=== PATIENT | male | born 1955 | race Caucasian/White ===

== ENCOUNTER 2020-07-20 08:00 | Outpatient (RCR) | payer BC, SELFPAY | END 2020-07-20 08:05 | disposition home or self-care (01) | LOC: PT 08:00 | PROVIDERS: Visit Provider Internal Medicine | DX: M25.512 Pain in left shoulder; M25.511 Pain in right shoulder | CPT/HCPCS: 97033; 97110; 97163 ==

== ENCOUNTER 2020-08-22 19:05 | Emergency (ER) | payer BC, SELFPAY ==
[2020-08-22 19:50] VITALS: BP 140/84; PULSE 87; RESP 19; TEMP 36.6; O2SAT 98; BMI 28.1
--- NOTE | 2020-08-22 20:14 | HMH.EDUTC ---
[facility] [place] Clinical Impression: Close exposure to COVID-19 virus Disposition: Home, Self-Care Condition on Discharge: Good Instructions: DI for COVID-19 (Suspected or Confirmed ), COVID-19: Testing and Tracing, Preventing the Spread of Coronavirus Discharge Instructions Additional Instructions: *Monitor Temp, Over the counter Motrin or Tylenol as directed/as needed Tylenol every 4 hours and Motrin every 6 hours (as long as your family doctor has told you that you can take it) for fever or pain. and straight to ER if unable to lower temp less than 101.0 after medication given *Warm salt water gargles may help to soothe the throat *Throat Lozenges *Warm fluids like tea with honey may help to soothe the throat *Sleep elevated *Humidifier/Vaporizer Follow up IMMEDIATELY for new or worsening symptoms or no Noticeable improvement over the next 48-72 hours. 911 for difficulty breathing or swallowing You were tested for today for COVID19 your test result should be back in the next 24-48 hours, you may call to the [facility] to see if your test results are back in the next 48 hours [phone] [facility] hours are 9am-9pm You was given a handout with instructions for Self Quarantine and Self isolation for while you wait on test results and what to do if they are positive If you are positive the Health Dept will be contacting you also Referrals: Melva Marks [Primary Care Provider] - As needed Forms: Work/School Release Time of Disposition: 20:16 Medical Decision Making - Johnnie Inquiry Pt receiving controlled substance: No Johnnie was queried for this patient: No Vital Signs: 08/22/20 19:50 Temperature 97.9 F Temperature Source Oral Pulse Rate [Right Brachial] 87 Respiratory Rate 19 Blood Pressure [Right Arm] 140/84 Blood Pressure Mean [Right Arm] 102 Blood Pressure Source [Right Arm] Automatic Cuff Blood Pressure Position [Right Arm] Sitting 02 Sat by Pulse Oximetry 98 Oxygen Delivery Method Room Air Orders (Tests/Meds): ORDERS Category Date Time Status Covid-19 Nasal PCR ([facility]) Routine Lab 08/22/20 20:00 Ordered [facility] [place] HPI - General Stated complaint: covid test Time Seen by Provider: 08/22/20 20:14 Mode of Arrival: Ambulatory Source of Information: Patient Limitations: No Limitations Description of Symptoms (Recalled from Triage Doc. by RN): COVID TEST D/T EXPOSURE; DENIES SYMPTOMS HEENT Symptoms (Recalled from RN notes): No Resp Symptoms (Recalled from RN notes): No Skin Symptoms (Recalled from RN notes): No MS Symptoms (Recalled from RN notes): No Functional Status (Recalled from RN notes): WNL - History of Present Illness Provider Complaint: Patient state that his recently tested positive for COVID States that he isnt having any symptoms but wanted to get tested due to close exposure - Related Data Allergies Allergy/AdvReac Type Severity Reaction Status Date / Time No Known Allergies Allergy Verified 08/22/20 20:12 - Worker's Comp Is this a Worker's Comp case?: No [facility] History - Hepatitis A Screen Drug use history?: No High risk sexual behaviors?: No History of sexually transmitted infection?: No Currently employed?: No Childcare worker?: No Do you have indoor plumbing?: Yes Do you have electricity?: Yes Attestation statement:: This patient has been screened for Hepatitis A risk factors. I have reviewed the patient's past medical history: Yes - Social History Alcohol Intake: never Occupational Status: other ROS Obtained: Yes All systems reviewed & no additional complaints, Yes Systems reviewed as appropriate & no additional complaints - Constitutional Constitutional: Reports system reviewed and no additional complaints, except as docu, Denies body ache, Denies chills, Denies fever(s), Denies headache(s) - ENT Ears, Nose, Mouth, and Throat: Reports system reviewed and no additional complaints, except as docu - Cardiovascular Cardiovascular: Reports system revie
[2020-08-22 20:33] VITALS: BP 140/84; PULSE 87; RESP 19; TEMP 36.6; O2SAT 98
== END 2020-08-22 20:35 | disposition home or self-care (01) ==
PROVIDERS: Emergency Provider Nurse Practitioner; PCP Internal Medicine
DX: Z20.822 Contact with and (suspected) exposure to COVID-19 (principal)
CPT/HCPCS: 99202; G0463; U0003

== ENCOUNTER 2022-02-15 17:30 | Emergency (ER) | payer BC, SELFPAY ==
[2022-02-15 17:47] VITALS: BP 96/57; PULSE 84; RESP 17; TEMP 36.7; O2SAT 99; BMI 25.9
--- NOTE | 2022-02-15 17:48 | HMH.EDGENADL ---
ED Disposition Condition on Discharge: Fair - Critical Care Critical Care Time: No <Robson Frost - Last Filed: 02/15/22 20:13> <Ham Hsu - Last Filed: 02/15/22 21:46> Clinical Impression: Renal insufficiency Hypotension Qualifiers: Hypotension type: unspecified hypotension type Qualified Code(s): I95.9 - Hypotension, unspecified Community acquired pneumonia Qualifiers: Laterality: unspecified laterality Qualified Code(s): J18.9 - Pneumonia, unspecified organism Altered mental status Qualifiers: Altered mental status type: somnolence Qualified Code(s): R40.0 - Somnolence Disposition: Left Against Medical Advice Instructions: DI for Muscle Weakness Additional Instructions: fluids and call pcp for follow up Prescriptions: levoFLOXacin [Levaquin 500mg tab] 500 mg PO DAILY #7 tab Transmission Status: Pending to [facility] #[id number] Referrals: Melva Marks DO [Primary Care Provider] - Attestation: On 02/15/22, the high probability of a clinically significant, sudden or life threatening deterioration of the following system(s) required my full and direct attention, intervention and personal management. The time I documented below is in addition to time spent performing reported procedures but includes the following listed in this critical care notation. Medical Decision Making - Johnnie Inquiry Pt receiving controlled substance: No - Lab Data Result diagrams: 02/15/22 18:18 02/15/22 18:18 - Radiology Data #1 Image(s): Chest Image Reviewed: Yes I reviewed the patient's radiology image, Yes I have reviewed radiologist's interpretation - CT Data CT Scan: Head Time Received: 18:[address] Reviewed: Yes: I have viewed the radiologist's interpretation <Robson Frost - Last Filed: 02/15/22 20:13> - Lab Data Lab results reviewed: Yes: I reviewed the patient's lab results. Result diagrams: 02/15/22 18:18 02/15/22 18:18 <Ham Hsu - Last Filed: 02/15/22 21:46> Vital Signs: 02/15/22 17:47 02/15/22 18:41 02/15/22 19:41 Temperature 98.1 F Temperature Source Oral Pulse Rate 72 51 L Pulse Rate [Left Radial] 84 Respiratory Rate 17 13 18 Blood Pressure 101/71 L 96/82 L Blood Pressure [Right Arm] 96/57 L Blood Pressure Mean 79 Blood Pressure Mean [Right Arm] 70 02 Sat by Pulse Oximetry 99 95 90 L Oxygen Delivery Method Room Air Room Air Room Air - Lab Data Lab Results 02/15/22 18:18: WBC 13.2 H, RBC 4.25 L, Hgb 13.7 L, Hct 40.4 L, MCV 95.2 H, MCH 32.3 H, MCHC 33.9, RDW 12.9, Plt Count 504 H, MPV 6.7 L, Neut % (Auto) 75.7, Lymph % (Auto) 14.1, [place] % (Auto) 7.4, Eos % (Auto) 2.4, Baso % (Auto) 0.4, Neut # (Auto) 10.0 H, Lymph # (Auto) 1.9, [place] # (Auto) 1.0, Eos # (Auto) 0.3, Baso # (Auto) 0.1 02/15/22 18:18: Sodium 137, Potassium 4.2, Chloride 105, Carbon Dioxide 23, Anion Gap 13.2, BUN 18, Creatinine 1.90 H, Estimated Creat Clear 41, Estimated GFR 36 L, Est GFR ( Amer) 43 L, Glucose 113 H, Calcium 9.0, Total Bilirubin < 0.1 L, AST 22, ALT 21, Alkaline Phosphatase 66, Troponin I < 0.01, Total Protein 7.1, Albumin 4.1, Globulin 3.0, Albumin/Globulin Ratio 1.4, Salicylates < 1.0 L, Acetaminophen < 10 L 02/15/22 18:18: Plasma/Serum Alcohol < 10 02/15/22 18:18: Lactate 1.1 02/15/22 18:18: Monoscreen Negative 02/15/22 18:23: Specimen Source Right radial, O2 % 21, ABG pH 7.32 L, ABG pCO2 35.1, ABG pO2 74.5 L, ABG HCO3 17.6 L, ABG Total CO2 18.7 L, ABG O2 Saturation 94, ABG Base Excess -8.5 L, Ambrosio Test Acceptable 02/15/22 18:40: SARS-CoV-2 (PCR) Not detected, Influenza A Untype (PCR) Not detected, Influenza Type B (PCR) Not detected Orders (Tests/Meds): ED MEDICATIONS Generic Name Dose Route Start Last Admin Trade Name Freq PRN Reason Stop Dose Admin Levofloxacin/Dextrose 750 mg in 150 mls @ 100 mls/hr 02/15/22 20:33 02/15/22 21:23 Levofloxacin 750mg/150ml Premix IV 02/15/22 22:02 100 mls/hr ONCE ONE Administrati
--- NOTE | 2022-02-15 17:50 | PC.NURSE ---
JENNY GONSALEZ at
--- NOTE | 2022-02-15 18:01 | XR_ITS ---
PROCEDURE INFORMATION: Exam: XR Chest Exam date and time: 02/15/2022 6:05 PM Age: 66 years old Clinical indication: Cough and shortness of breath; Patient HX: HX covid one week ago TECHNIQUE: Imaging protocol: Radiologic exam of the chest. Views: 1 view. COMPARISON: No relevant prior studies available. FINDINGS: Lungs: Emphysema. Left lung peripheral opacities could correlate with atypical pneumonia in the appropriate clinical setting. Pleural spaces: Unremarkable. No pleural effusion. No pneumothorax. Heart/Mediastinum: Cardiomegaly. Vasculature: Vascular calcifications. Bones/joints: Unremarkable. IMPRESSION: Left lung peripheral opacities could correlate with atypical pneumonia in the appropriate clinical setting.
--- NOTE | 2022-02-15 18:09 | PC.NURSE ---
respiratory at BS
--- NOTE | 2022-02-15 18:12 | CT_ITS ---
PROCEDURE INFORMATION: Exam: CT Head Without Contrast Exam date and time: 02/15/2022 6:22 PM Age: 66 years old Clinical indication: Altered mental status/memory loss; Additional info: AMS TECHNIQUE: Imaging protocol: Computed tomography of the head without contrast. Radiation optimization: All CT scans at this facility use at least one of these dose optimization techniques: automated exposure control; mA and/or kV adjustment per patient size (includes targeted exams where dose is matched to clinical indication); or iterative reconstruction. COMPARISON: No relevant prior studies available. FINDINGS: Brain: Moderate chronic brain volume loss and chronic small vessel ischemic changes. Cerebral ventricles: The size of the lateral ventricles is somewhat disproportionate to the amount of chronic brain volume loss. Paranasal sinuses: Right maxillary sinus retention cyst. Mastoid air cells: Visualized mastoid air cells are well aerated. Orbital cavities: Status post left cataract surgery. Bones/joints: Unremarkable. No acute fracture. Soft tissues: Unremarkable. IMPRESSION: The size of the lateral ventricles is somewhat disproportionate to the amount of chronic brain volume loss. Please correlate clinically for evidence of normal pressure hydrocephalus/communicating hydrocephalus. Otherwise, no acute findings.
--- NOTE | 2022-02-15 18:20 | ECG_ITS ---
APPROVED REPORT Exam: Resting ECG HR:78 bpm ECG Measurements Heart Rate 78 AXES ND 186 P 27 QRSd 80 QRS 39 QT 388 T 29 QTc 422 Conclusion SINUS RHYTHM WITH OCCASIONAL SUPRAVENTRICULAR PREMATURE COMPLEXES BORDERLINE ECG UNCONFIRMED REPORT Electronically signed by : Adam Sánchez MD 02/16/2022 17:01:18
[2022-02-15 18:23] LABS: ABG Base Excess -8.5 mmol/L (-2.4-2.3); ABG HCO3 17.6 mmhg (22.0-26.0); ABG Oxygen Saturation 94 % (90-100); ABG PCO2 35.1 mmhg (35.0-45.0); ABG PH 7.32 mmol/L (7.35-7.45); ABG PO2 74.5 mmhg (80-100); ABG TCO2 18.7 mmhg (23-27)
--- NOTE | 2022-02-15 18:23 | PC.NURSE ---
IV established and blood sent to the lab.
[2022-02-15 18:24] LABS: Allen's Test Acceptable; Oxygen 21 %; Source Right Radial
--- NOTE | 2022-02-15 18:24 | PC.NURSE ---
pt provided with urinal for sample
--- NOTE | 2022-02-15 18:27 | PC.NURSE ---
pt to CT with locate technician by rosalba
[2022-02-15 18:31] LABS: Basophils # 0.1 K/mm3 (0-0.2); Basophils % 0.4 % (0.1-2.0); Eosinophils # 0.3 K/mm3 (0.0-0.4); Eosinophils % 2.4 % (0.1-12.0); Hematocrit 40.4 % (42.0-52.0); Hemoglobin 13.7 g/dL (14.1-18.0); Lymphocytes # 1.9 K/mm3 (0.7-4.5); Lymphocytes % 14.1 % (10-50); Mean Corpuscular HGB Conc 33.9 g/dL (31.8-35.4); Mean Corpuscular Hemoglobin 32.3 pg (27.0-31.2); Mean Corpuscular Volume 95.2 fl (80-94); Mean Platelet Volume 6.7 fl (7.4-10.4); Monocytes % 7.4 % (1.7-9.3); Neutrophils % 75.7 % (37.0-80.0); Platelet Count 504 K/mm3 (142-424); Red Blood Count 4.25 M/mm3 (4.60-6.20); Red Cell Distribution Width 12.9 % (11.5-17.5); White Blood Count 13.2 K/mm3 (4.8-10.8)
--- NOTE | 2022-02-15 18:34 | PC.NURSE ---
pt returned from CT with restoration technician by stretcher; no complications
[2022-02-15 18:41] VITALS: BP 101/71; PULSE 72; RESP 13; O2SAT 95
[2022-02-15 18:42] LABS: Alanine Aminotransferase 21 U/L (12-78); Albumin Level 4.1 g/dl (3.5-5.0); Albumin/Globulin Ratio 1.4 (1.1-1.8); Alkaline Phosphatase 66 U/L (38-126); Anion Gap 13.2 mEq/L (5-15); Aspartate Amino Transferase 22 U/L (17-59); Blood Urea Nitrogen 18 mg/dl (9-20); Carbon Dioxide 23 mmol/L (22.0-30.0); Chloride 105 mmol/L (98-107); Creatinine Clearance Estimated 41 mL/min (50-200); Estimated Glomerular Filt Rate 36 ml/min (>60); GFR (African American) 43 ML/MIN (>60); Glucose 113 mg/dl (74-100); Potassium 4.2 mmoL/L (3.5-5.1); Sodium 137 mmol/L (136-145); Total Protein,Serum 7.1 g/dl (6.3-8.2)
[2022-02-15 18:43] LABS: Acetaminophen < 10 ug/ml (10-30); Bilirubin,Total < 0.1 mg/dl (0.2-1.3); Ethyl Alcohol < 10 mg/dl (0-10); Lactic Acid 1.1 mmol/L (0.7-2.1); Salicylate < 1.0 mg/dL (2.0-20.0)
[2022-02-15 18:49] LABS: Coronavirus 19, PCR Not Detected (NotDetected); Influenza A, PCR Not Detected (NotDetected); Influenza B, PCR Not Detected (NotDetected)
[2022-02-15 19:00] LABS: Troponin I < 0.01 ng/ml (0.00-0.034)
--- NOTE | 2022-02-15 19:01 | PC.NURSE ---
pt ambulatory to restroom with assistance from spouse and FLORIAN Malave. No complications.
[2022-02-15 19:05] LABS: Monoscreen (Rapid) Negative (Negative)
--- NOTE | 2022-02-15 19:36 | PC.NURSE ---
Pt demanding water to drink. MD agreed. Pt given ice water and started 2nd L of IVF. Pt still unable to provide urine sample.
[2022-02-15 19:41] VITALS: BP 96/82; PULSE 51; RESP 18; O2SAT 90
--- NOTE | 2022-02-15 20:12 | PC.NURSE ---
Pt attempting to provide urine sample again
--- NOTE | 2022-02-15 20:55 | PC.NURSE ---
Pt still unable to provide urine sample. Requested cath to ensure he is not in urine retention. Pt refused at this time. He is continuing to drink PO fluids and is on 3 cup of water. aware.
[2022-02-15 22:23] VITALS: BP 105/62; PULSE 79; RESP 20; TEMP 36.7; O2SAT 98
== END 2022-02-15 22:30 | disposition left against medical advice (07) ==
PROVIDERS: Emergency Provider Emergency Medicine; PCP Internal Medicine
DX: I95.9 Hypotension, unspecified (principal); J18.9 Pneumonia, unspecified organism; R40.0 Somnolence; Z53.29 Procedure and treatment not carried out because of patient's decision for other reasons; Z20.822 Contact with and (suspected) exposure to COVID-19; Z79.899 Other long term (current) drug therapy
CPT/HCPCS: 70450; 71045; 80053; 80329; 82803; 83605; 84484; 85025; 86318; 87040; 93005; 96365; 96375; 99284; C9803; J1956; U0003; U0005

== ENCOUNTER 2023-08-19 01:37 | Inpatient (IN) | payer BC, MEDICARE, SELFPAY ==
[2023-08-19] VITALS (36 sets, daily range): BP systolic 94–169; BP diastolic 46–95; PULSE 55–127; RESP 18–30; TEMP 36.6–37; O2SAT 57–98; BMI 30.4; BMI 29.7
--- NOTE | 2023-08-19 01:43 | PC.NURSE ---
At [address] Leung of spo2 saturation noted during triage. Patient placed on nasal cannula and spo2 increased to 77%. Dr Leung responded to bedside. Respiratory notified. Patient placed on NRB at this time. Oxygen saturation improved to 97% while on NRB.
--- NOTE | 2023-08-19 01:50 | XR_ITS ---
PROCEDURE INFORMATION: Exam: XR Chest Exam date and time: 08/19/2023 1:51 AM Age: 68 years old Clinical indication: Shortness of breath; Additional info: SOA TECHNIQUE: Imaging protocol: Radiologic exam of the chest. Views: 1 view. COMPARISON: CR XR CHEST PORTABLE 02/15/2022 6:05 PM FINDINGS: Lungs: Multifocal parenchymal consolidations concerning for pneumonia and/or edema. Pleural spaces: Small bilateral pleural effusions are suspected. Heart/Mediastinum: No evidence of mediastinal widening or cardiac silhouette enlargement; the mediastinum and heart appear within normal limits for contour and size. Stable cardiac and mediastinal contours. Bones/joints: No evidence of acute osseous abnormalities within the visualized portions of the thoracic spine and ribs. Osseous structures appear appropriate for patient age. IMPRESSION: 1. Multifocal parenchymal consolidations concerning for pneumonia and/or edema. 2. Small bilateral pleural effusions are suspected.
--- NOTE | 2023-08-19 01:53 | HMH.EDCP ---
Discharge Plan Disposition Patient Disposition: Admitted Condition: Fair Clinical Impressions Clinical Impression: Acute hypoxemic respiratory failure Pulmonary edema Qualifiers: Chronicity: acute Qualified Code(s): J81.0 - Acute pulmonary edema Sepsis Qualifiers: Sepsis type: sepsis due to unspecified organism Sepsis acute organ dysfunction status: with acute organ dysfunction Severe sepsis acute organ dysfunction type: acute respiratory failure Acute respiratory failure type: with hypoxia Severe sepsis shock status: without septic shock Qualified Code(s): A41.9 - Sepsis, unspecified organism Discharge ED Provider: Addison Leung General Chief Complaint: Upper Respiratory Infection Stated Complaint: SOA,chest congestion Time Seen by Provider: 08/19/23 01:39 History of Present Illness HPI narrative: This 68-year-old male presents to the ER with concerns of shortness of breath. Over the last week patient has been under the weather with mild respiratory illness. In the last 24 hours he has had acute worsening of shortness of breath. Over the last few days he had mild increase in peripheral swelling, patient does not take a diuretic. 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 He also has COPD but does not take any inhalers. Patient became acutely short of breath tonight and presented to the ER. He has significantly increased work of breathing. Patient states he does not have any chest pain, abdominal pain, no fevers or chills. He states my woke me up and then sh hit the fan with his breathing. states because he was having increased work of breathing earlier today she gave him 500 mg of azithromycin that she had at home. Related Data Home Medications Medication Instructions Recorded Confirmed alprazolam 0.5 mg tablet,extended 0.5 mg PO DAILY Anxiety 02/15/22 02/15/22 release 24 hr amlodipine 10 mg tablet 10 mg PO DAILY htn 02/15/22 02/15/22 carvedilol 25 mg tablet 50 mg PO BID htn 02/15/22 02/15/22 clopidogrel 75 mg tablet 75 mg PO DAILY antiplatelet 02/15/22 02/15/22 finasteride 5 mg tablet 5 mg PO DAILY bph 02/15/22 02/15/22 hydralazine 50 mg tablet 50 mg PO DAILY High blood pressure 02/15/22 02/15/22 lisinopril 40 mg tablet 40 mg PO DAILY High blood pressure 02/15/22 02/15/22 omeprazole 20 mg capsule,delayed 20 mg PO DAILY GERD 02/15/22 02/15/22 release rosuvastatin 20 mg tablet 20 mg PO DAILY hld 02/15/22 02/15/22 Previous Rx's Medication Instructions Recorded levofloxacin 500 mg tablet 500 mg PO DAILY #7 tabs 02/15/22 Allergies Allergy/AdvReac Type Severity Reaction Status Date / Time No Known Allergies Allergy Verified 08/22/20 20:12 [facility] Disclaimer: The information contained in this section may have been updated after the patient was seen, as this information can be updated by other users. Social History Smoking Status: Unknown if ever smoked alcohol intake: never current occupational status: other Travel in the last 8 weeks: None ROS Obtained: Yes All systems reviewed & no additional complaints except as documented Constitutional Constitutional: Denies chills, Denies fever(s), Denies headache(s) and Denies weakness Eyes Eyes: Denies change in vision ENT Ears, Nose, Mouth, and Throat: Denies dizziness, Denies headache(s), Denies nasal congestion and Denies sore throat Cardiovascular Cardiovascular: Denies chest pain, Reports dyspnea and Reports leg edema Respiratory Respiratory: Reports change in phlegm color (Slightly productive cough with yellow phlegm), Reports cough and Reports dyspnea Gastrointestinal Gastrointestingal: Denies constipation, diarrhea, nausea or vomiting Genitourinary Male Genitourinary: Denies difficulty urinating Musculoskeletal Musculoskeletal: Denies arthralgias, Denies myalgias, Denies numbness and Denies tingling Integumentary/Breasts Skin/Breast: Denies change in pigmentation Neurologic Neurologic: Denies dizziness, Denies headache(s), Denies numbness, Denies tingling and Denies weakness Physical Exam General General appearance: alert and in no apparent distress Head Head exam: atraumatic and normocephalic Eye Eye exam: Present PERRL and EOMI ENT ENT exam: Present mucous membranes moist Neck Neck exam: Present normal inspection and full ROM Chest Chest inspection: Present symmetric chest wall rise Respiratory Respiratory exam: Present respiratory distress, wheezes, accessory muscle use and prolonged expiratory phase; Absent stridor Cardiovascular Cardiovascular exam: Present normal rhythm and tachycardia (Rate 106 on arrival) Abdominal Exam Abdominal exam: Present soft; Absent distention or tenderness Extremities Exam Extremities exam: Present full ROM and edema (+1 bilateral lower extremity pitting edema) Neurological Exam Neurological exam: Present alert and oriented X3; Absent motor sensory deficit Psychiatric Psychiatric exam: Present normal affect and normal mood Skin Skin exam: Present warm and dry HEART Score HEART Score HEART Score assessment performed?: Yes History (anamnesis): Moderately suspicious ECG: Non-specific disturbance Age: >65 years Risk factors: 1-2 risk factors Troponin: </= normal limit HEART Score: 5 Procedures Limited Ultrasound Interpretation:: Limited cardiac ultrasound Indication: Shortness of breath, leg swelling Identified cardiac views: Cardiac parasternal long axis, apical four-chamber Findings: Cardiac activity present, no gross wall motion abnormality, no pericardial effusion, no obvious right heart strain Impression: -Cardiac activity present, no gross wall motion abnormality, no pericardial effusion, no tamponade, no obvious right heart strain Images were saved to permanent archive The study was technically adequate CPT: 74918 This study was performed by nv, and I personally interpreted all images/videos. Based on my clinical judgement, these images were adequate and did not necessitate further imaging. Miscellaneous Procedure Procedure Performed: Limited lung ultrasound A focused ultrasound exam of the pleural spaces was performed to evaluate for pneumothorax, pulmonary edema, pleural effusion and/or consolidation. The ultrasound was performed with the following indications, as noted in the H&P: Dyspnea Identified structures: Bilateral thoracic cavities were examined. Findings: Lung sliding: -Present bilaterally B-lines: Present in bilateral anterior and lateral lung kapoor Pleural effusion: -Absent bilaterally Consolidation: No obvious consolidation appreciated bilaterally Impression: - Pneumothorax absent - Pleural effusion absent - B-lines present throughout bilaterally - Consolidation absent Images saved to permanent archive The study was technically adequate CPT 19101-50 This study was performed by nv, and I personally interpreted all images/videos. Based on my clinical judgement, these images were adequate and did not necessitate further imaging. Critical Care Critical Care Time Critical Care Time: Yes Attestation: On 08/19/23, the high probability of a clinically significant, sudden or life threatening deterioration of the following system(s) (pulmonary, cardiac) required my full and direct attention, intervention and personal management. The time I documented below is in addition to time spent performing reported procedures but includes the following listed in this critical care notation. Total Time Total Critical Care Time: 35 Medical Decision Making Medical Records Medical records reviewed: Yes I reviewed the patient's medical records. MR Comment: Most recent ER note from January 2022 demonstrates patient presented with altered mental status and ended up leaving AGAINST MEDICAL ADVICE. Johnnie Inquiry Pt receiving controlled substance: No Vital Signs Vital Signs: 08/19/23 01:38 08/19/23 01:50 08/19/23 02:00 Temperature 97.8 F Temperature Source Oral Pulse Rate 105 H 100 H Pulse Rate [Left Radial] 127 H Respiratory Rate 30 H Blood Pressure 151/95 H 131/87 Blood Pressure [Right Arm] 151/95 H Blood Pressure Mean 123 101 Blood Pressure Mean [Right Arm] 113 Blood Pressure Source [Right Arm] Automatic Cuff Blood Pressure Position [Right Arm] Sitting 02 Sat by Pulse Oximetry 57 L 98 95 Oxygen Delivery Method Room Air Non-Rebreather BiPAP 08/19/23 02:04 08/19/23 02:00 08/19/23 02:30 Temperature Temperature Source Pulse Rate 100 H 90 101 H Pulse Rate [Left Radial] Respiratory Rate Blood Pressure 116/80 Blood Pressure [Right Arm] Blood Pressure Mean 97 Blood Pressure Mean [Right Arm] Blood Pressure Source [Right Arm] Blood Pressure Position [Right Arm] 02 Sat by Pulse Oximetry 95 Oxygen Delivery Method BiPAP 08/19/23 02:31 08/19/23 03:00 08/19/23 03:05 Temperature Temperature Source Pulse Rate 95 H 78 78 Pulse Rate [Left Radial] Respiratory Rate Blood Pressure 120/76 94/65 L 98/68 L Blood Pressure [Right Arm] Blood Pressure Mean 76 Blood Pressure Mean [Right Arm] Blood Pressure Source [Right Arm] Blood Pressure Position [Right Arm] 02 Sat by Pulse Oximetry 94 L 89 L 91 L Oxygen Delivery Method BiPAP Lab Data Labs: Lab Results 08/19/23 01:50: WBC 14.5 H, RBC 5.00, Hgb 15.5, Hct 47.8, MCV 95.5 H, MCH 31.1, MCHC 32.5, RDW 14.2, Plt Count 303, MPV 7.8, Neut % (Auto) 84.6 H, Lymph % (Auto) 7.6 L, [place] % (Auto) 5.0, Eos % (Auto) 2.6, Baso % (Auto) 0.3, Neut # (Auto) 12.3 H, Lymph # (Auto) 1.1, [place] # (Auto) 0.7, Eos # (Auto) 0.4, Baso # (Auto) 0.0, Sodium 137, Potassium 4.3, Chloride 106, Carbon Dioxide 19 L, Anion Gap 16.3 H, BUN 20, Creatinine 1.10, Estimated Creat Clear 81, Estimated GFR 66, Est GFR ( Amer) 80, Glucose 168 H, Calcium 8.6, Total Bilirubin 0.7, AST 26, ALT 19, Alkaline Phosphatase 89, Troponin I < 0.01, NT-Pro-B Natriuret Pep 3110 H, Total Protein 7.8, Albumin 4.2, Globulin 3.6 H, Albumin/Globulin Ratio 1.2 08/19/23 01:54: SARS-CoV-2 (PCR) Not detected, Influenza A Untype (PCR) Not detected, Influenza Type B (PCR) Not detected 08/19/23 01:56: VBG pH 7.33, VBG pCO2 33.7 L, VBG pO2 43.7 H, VBG HCO3 17.4 L, VBG Total CO2 18.5 L, VBG O2 Saturation 73.7 H, VBG Base Excess -8.5 L 08/19/23 01:50 08/19/23 01:50 Response Orders (Tests/Meds): ED MEDICATIONS Generic Name Dose Route Start Last Admin Trade Name Freq PRN Reason Stop Dose Admin Acetaminophen 650 mg 08/19/23 02:54 Acetaminophen 325mg Tab PO 09/18/23 02:53 Q4HP PRN Fever or Mild Pain (1-3) Vancomycin/PEG/NA[place]/Lysine/Water 1.75 gm in 350 mls @ 175 mls/hr 08/19/23 02:30 08/19/23 03:02 Vancomycin 1.75gm/350ml (Peg) Premix IV 08/19/23 04:29 175 mls/hr ONCE ONE Administration Sodium Chloride 1,000 mls @ 50 mls/hr 08/19/23 03:00 Sod Chlor 0.9% 1000ml Bag IV 09/18/23 02:59 .Q20H BR[facility]LEY Miscellaneous 1 each 08/19/23 02:15 08/19/23 02:29 Vancomycin Consult Request NOTAPPLIC 09/18/23 02:14 1 each CONSULT PHARMACY BR[facility] Administration Morphine Sulfate 2 mg 08/19/23 02:54 Morphine 2mg/Ml Syringe IV 09/18/23 02:53 Q2HP PRN Severe Pain (7-10) Nitroglycerin 0.4 mg 08/19/23 02:01 Nitroglycerin 0.4mg Sl Tablet SL 09/18/23 02:00 ONCE PRN Blood Pressure - High Ondansetron HCl 4 mg 08/19/23 02:54 Ondansetron 4mg/2ml Vial IV 09/18/23 02:53 Q8HP PRN Nausea Pantoprazole Sodium 40 mg 08/19/23 09:00 Pantoprazole 40mg Tablet PO 09/18/23 08:59 DAILY BRADLEY Discontinued Medications Generic Name Dose Route Start Last Admin Trade Name Freq PRN Reason Stop Dose Admin Albuterol/Ipratropium 9 ml 08/19/23 01:50 08/19/23 02:00 Ipratropium/Albuterol 3 Ml Neb IH 08/19/23 01:51 9 ml ONCE ONE Administration Furosemide 40 mg 08/19/23 02:01 08/19/23 02:16 Furosemide 40mg/4ml Vial IV 08/19/23 02:02 40 mg ONCE ONE Administration Doxycycline Hyclate 100 mg/ 250 mls @ 166.667 mls/hr 08/19/23 01:50 08/19/23 02:20 Sodium Chloride IV 08/19/23 01:51 Not Given ONCE ONE Piperacillin Sod/Tazobactam 100 mls @ 200 mls/hr 08/19/23 02:14 08/19/23 02:20 Sod 4.5 gm/ Sodium Chloride IV 08/19/23 02:43 Not Given ONCE ONE Piperacillin Sod/Tazobactam 100 mls @ 200 mls/hr 08/19/23 02:19 08/19/23 02:25 Sod 4.5 gm/ Sodium Chloride IV 08/19/23 02:48 200 mls/hr ONCE ONE Administration Methylprednisolone Sodium Succinate 125 mg 08/19/23 01:50 08/19/23 02:05 Methylprednisolone Sod Succ 125mg Vial IV 08/19/23 01:51 125 mg ONCE ONE Administration ORDERS Category Date Time Status CXR --portable [XR chest portable] Stat Exams 08/19/23 01:50 Completed POCUS Point of Care (ER Only) Stat Exams 08/19/23 02:01 Ordered BNP [Brain Natriuretic Peptide] Stat Lab 08/19/23 01:50 Completed CBC w/Auto Diff [Complete Blood Count Auto Diff] Stat Lab 08/19/23 01:50 Completed CMP [Comprehensive Metabolic Panel] Stat Lab 08/19/23 01:50 Completed Complete Blood Count Auto Diff AMLAB Lab 08/19/23 06:00 Ordered Comprehensive Metabolic Panel AMLAB Lab 08/19/23 06:00 Ordered Rapid PCR Covid and Flu A/B Stat Lab 08/19/23 01:54 Completed Trop I [Troponin I] Stat Lab 08/19/23 01:50 Completed Troponin I Q3H Lab 08/19/23 05:00 Ordered Troponin I Q3H Lab 08/19/23 08:00 Ordered Urinalysis and Microscopic Stat Lab 08/19/23 02:13 Ordered VBG [Venous Blood Gas] Stat RT 08/19/23 01:56 Completed ECG initial [place] Routine Y 08/19/23 02:00 Completed MDM Narrative Medical Decision Narrative: In summary, this 68year old male presents to the emergency department today with significantly worsening shortness of breath over the last 24 hours. On initial evaluation patient is in respiratory distress with tachypnea, significant accessory muscle use, wheezing throughout, no rhonchi or rales, +1 peripheral edema in the bilateral lower extremities, patient is young in appearance on arrival saturating 56% on room air. He improved to 72% on 6 L nasal cannula and nonrebreather he improved to 90%. We called for respiratory to start the patient on NIPPV and begin DuoNebs. Differential diagnosis includes but is not limited to COPD exacerbation, pneumonia, SCAPE, heart failure, hypercarbia, viral syndrome, ACS, patient also met sepsis criteria with tachycardia, tachypnea, and source of infection being the lungs. Based on these concerns, I ordered acute respiratory treatment with BiPAP, DuoNebs, Solu-Medrol given patient's history of underlying COPD, also ordered cardiac workup, BNP. ECG personally interpreted demonstrates sinus tachycardia, rate 106, borderline right axis deviation, normal intervals, no STEMI, occasional PVCs. Patient received DuoNebs, Solu-Medrol, broad-spectrum antibiotics for initial treatment. I am not administering IV fluids due to concern for fluid overload and patient not being hypotensive. I performed bedside ultrasound which demonstrated B-lines in all lung kapoor, see procedure note for details. Cardiac function was not significantly depressed on gross assessment of ultrasound. Given the B-lines in all lung kapoor I am concerned for sudden pulmonary edema and I considered nitroglycerin however patient's blood pressure is now systolics in the 110s so he is not a good candidate for nitroglycerin as it will make him hypotensive. I am administering IV Lasix. Labs personally reviewed demonstrate CBC with leukocytosis, WBCs 14.5, patient is already receiving broad-spectrum antibiotics, no anemia, VBG with pH 7.33, pCO2 is actually low at 33.7, less concerning for COPD exacerbation. CMP demonstrates sodium, potassium, chloride normal, anion gap slightly elevated at 16.3, BUN 20, creatinine 1.10, nonactionable at this time however does indicate that patient should tolerate Lasix well. Patient's blood glucose was 168, no known history of diabetes. Initial troponin less than 0.01, BNP 3110. This is significantly elevated and gives further indication of some pulmonary edema. COVID, influenza negative. XR personally interpreted demonstrates findings of pulmonary edema, cannot rule out underlying infection. On reassessment patient symptoms have improved, he is tolerating the NIPPV well. Current settings are IPAP 16, PEEP 8, FiO2 40% saturating 90 to 92% and breathing much more comfortably. Wheezes have improved. He admits to feeling improved. He was on these positive pressure settings for nearly an hour. NIPPV had significant leak due to mask fitment and facial hair. Patient's symptoms had improved enough I discussed with respiratory trying the patient on nasal cannula. We attempted this, however patient was only saturating 89 to 90% on nasal cannula so he was placed back on NIPPV with adjustments in his mask fitment. With improvement in fit we were able to titrate the NIPPV to settings of IPAP 10, PEEP 5, FiO2 40% saturating 94%. I had an interactive discussion with hospitalist service regarding patient's presentation, labs and imaging, and need for admission given presentation with acute hypoxic respiratory distress, sepsis, and pulmonary edema. Patient has been accepted to their service for continued management of his ongoing problems.
--- NOTE | 2023-08-19 01:55 | PC.NURSE ---
Patient placed on BiPap at this time.
[2023-08-19] MEDS: IPRATROPIUM/ALBUTEROL 3 ML NEB 9 ML IH (02:00)
--- NOTE | 2023-08-19 02:00 | ECG_ITS ---
APPROVED REPORT Exam: Resting ECG HR:106 bpm ECG Measurements Heart Rate 106 AXES [place] 193 P 54 QRSd 77 QRS 91 QT 334 T 10 QTc 396 Conclusion SINUS TACHYCARDIA WITH OCCASIONAL VENTRICULAR PREMATURE COMPLEXES WITH OCCASIONAL SUPRAVENTRICULAR PREMATURE COMPLEXES BORDERLINE RIGHT AXIS DEVIATION [QRS AXIS > 90] MINIMAL ST DEPRESSION [0.025+ mV ST DEPRESSION] ABNORMAL RHYTHM ECG UNCONFIRMED REPORT Electronically signed by : Adam Sánchez MD 08/19/2023 08:22:27
[2023-08-19 02:01] LABS: Basophils % 0.3 % (0.1-2.0); Eosinophils # 0.4 K/mm3 (0.0-0.4); Eosinophils % 2.6 % (0.1-12.0); Hematocrit 47.8 % (42.0-52.0); Hemoglobin 15.5 g/dL (14.1-18.0); Lymphocytes # 1.1 K/mm3 (0.7-4.5); Lymphocytes % 7.6 % (10-50); Mean Corpuscular HGB Conc 32.5 g/dL (31.8-35.4); Mean Corpuscular Hemoglobin 31.1 pg (27.0-31.2); Mean Corpuscular Volume 95.5 fl (80-94); Mean Platelet Volume 7.8 fl (7.4-10.4); Monocytes # 0.7 K/mm3 (0.1-1.0); Neutrophils # 12.3 K/mm3 (1.8-7.8); Neutrophils % 84.6 % (37.0-80.0); Platelet Count 303 K/mm3 (142-424); Red Cell Distribution Width 14.2 % (11.5-17.5); White Blood Count 14.5 K/mm3 (4.8-10.8)
[2023-08-19 02:02] LABS: Chloride 106 mmol/L (98-107); Sodium 137 mmol/L (136-145)
[2023-08-19 02:03] LABS: Potassium 4.3 mmoL/L (3.5-5.1)
[2023-08-19 02:05] LABS: Alanine Aminotransferase 19 U/L (12-78); Albumin Level 4.2 g/dl (3.5-5.0); Albumin/Globulin Ratio 1.2 (1.1-1.8); Alkaline Phosphatase 89 U/L (38-126); Anion Gap 16.3 mEq/L (5-15); Aspartate Amino Transferase 26 U/L (17-59); Bilirubin,Total 0.7 mg/dl (0.2-1.3); Blood Urea Nitrogen 20 mg/dl (9-20); Carbon Dioxide 19 mmol/L (22.0-30.0); Creatinine Clearance Estimated 81 mL/min (50-200); Estimated Glomerular Filt Rate 66 ml/min (>60); GFR (African American) 80 ML/MIN (>60); Globulin 3.6 g/dL (1.3-3.2); Total Protein,Serum 7.8 g/dl (6.3-8.2)
[2023-08-19] MEDS: METHYLPREDNISOLONE SOD SUCC 125MG VIAL 125 MG IV (02:05)
[2023-08-19 02:06] LABS: VBG Base Excess -8.5 mmol/L (-2.4-2.3); VBG HCO3 17.4 mmol/L (23-30); VBG Oxygen Saturation 73.7 % (50-70); VBG PCO2 33.7 mmol/L (35-51); VBG PH 7.33 mmol/L (7.31-7.41); VBG PO2 43.7 mmol/L (28-40); VBG Total CO2 18.5 mmol/L (23-27)
[2023-08-19 02:06] LABS: Calcium 8.6 mg/dl (8.4-10.2); Glucose 168 mg/dl (74-100)
[2023-08-19 02:15] LABS: NT Pro Brain Natriuretic Pep. 3110 pg/mL (0-125)
[2023-08-19] MEDS: FUROSEMIDE 40MG/4ML VIAL 40 MG IV ×2 (02:16→07:01)
[2023-08-19 02:19] LABS: Troponin I < 0.01 ng/ml (0.00-0.034)
[2023-08-19] MEDS: PIPERACILLIN/TAZO 4.5 GM in 0.9 % SODIUM CHLORIDE 100 ML IV (02:25)
[2023-08-19] MEDS: VANCOMYCIN CONSULT REQUEST 1 EACH NOTAPPLIC (02:29)
[2023-08-19 02:35] LABS: Coronavirus 19, PCR Not Detected (NotDetected); Influenza A, PCR Not Detected (NotDetected); Influenza B, PCR Not Detected (NotDetected)
--- NOTE | 2023-08-19 02:57 | P.HP_ITS ---
History of Present Illness *Admission Date: 08/19/23 *Reason for visit:: SOB *History of present illness: This is 68-year-old male with PMHx of COPD, CHF, Hydrocephalus, HTN, PAD s/p iliac stent presented to the ER with concerns of shortness of breath. Started about one week ago and had acute worsening of shortness of breath in the last 24hrs. As well as he noticed he had mild increase in peripheral swelling, patient does not take a diuretic. 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 He does not take any inhalers. Patient stated he does not have any chest pain, abdominal pain, no fevers or chills. stated because he was having increased work of breathing earlier today she gave him 500 mg of azithromycin that she had at home. Admitted for treatment and management. [facility] Disclaimer: The information contained in this section may have been updated after the patient was seen, as this information can be updated by other users. Medical History (Updated 08/19/23 @ 06:15 by Ortiz Mueller APRN) CHF (congestive heart failure) COPD (chronic obstructive pulmonary disease) Hydrocephalus Pulmonary fibrosis Social History Smoking Status: Unknown if ever smoked alcohol intake: never current occupational status: other Travel in the last 8 weeks: None Review of Systems Review of Systems Review of systems:: pertinent systems reviewed and negative unless documented below Constitutional Constitutional: Denies headache(s) and Denies weakness ENT Ears, Nose, Mouth, and Throat: Denies dizziness and Denies headache(s) *Musculoskeletal Musculoskeletal: Denies numbness and Denies tingling *Neurologic Neurologic: Denies dizziness, Denies headache(s), Denies numbness, Denies tingling and Denies weakness Meds Home Medications and Allergies Home Medications Medication Instructions Recorded Confirmed Type alprazolam 0.5 mg tablet,extended 0.5 mg PO HS Anxiety 02/15/22 08/19/23 History release 24 hr amlodipine 10 mg tablet 10 mg PO DAILY htn 02/15/22 08/19/23 History carvedilol 25 mg tablet 12.5 mg PO BID htn 02/15/22 08/19/23 History clopidogrel 75 mg tablet 75 mg PO DAILY antiplatelet 02/15/22 08/19/23 History finasteride 5 mg tablet 5 mg PO DAILY bph 02/15/22 08/19/23 History hydralazine 50 mg tablet 50 mg PO BID High blood pressure 02/15/22 08/19/23 History lisinopril 40 mg tablet 40 mg PO DAILY High blood pressure 02/15/22 08/19/23 History omeprazole 20 mg capsule,delayed 20 mg PO DAILY GERD 02/15/22 08/19/23 History release rosuvastatin 20 mg tablet 20 mg PO DAILY hld 02/15/22 08/19/23 History tramadol 50 mg tablet 50 mg PO NEEDED PRN sleep 08/19/23 08/19/23 History New Prescriptions to Start Prescriptions: Allergies Allergy/AdvReac Type Severity Reaction Status Date / Time No Known Allergies Allergy Verified 08/22/20 20:12 Exam Data for Last 24 hours Vital signs and Labs for Last 24 Hours: Temp Pulse Resp BP Pulse Ox O2 Del Method 97.8 F 101 H 30 H 116/80 95 BiPAP 08/19/23 01:38 08/19/23 02:30 08/19/23 01:38 08/19/23 02:04 08/19/23 02:04 08/19/23 02:04 Laboratory Results - last 24 hr 08/19/23 01:50: WBC 14.5 H, RBC 5.00, Hgb 15.5, Hct 47.8, MCV 95.5 H, MCH 31.1, MCHC 32.5, RDW 14.2, Plt Count 303, MPV 7.8, Neut % (Auto) 84.6 H, Lymph % (Auto) 7.6 L, [place] % (Auto) 5.0, Eos % (Auto) 2.6, Baso % (Auto) 0.3, Neut # (Auto) 12.3 H, Lymph # (Auto) 1.1, [place] # (Auto) 0.7, Eos # (Auto) 0.4, Baso # (Auto) 0.0, Sodium 137, Potassium 4.3, Chloride 106, Carbon Dioxide 19 L, Anion Gap 16.3 H, BUN 20, Creatinine 1.10, Estimated Creat Clear 81, Estimated GFR 66, Est GFR ( Amer) 80, Glucose 168 H, Calcium 8.6, Total Bilirubin 0.7, AST 26, ALT 19, Alkaline Phosphatase 89, Troponin I < 0.01, NT-Pro-B Natriuret Pep 3110 H, Total Protein 7.8, Albumin 4.2, Globulin 3.6 H, Albumin/Globulin Ratio 1.2 08/19/23 01:54: SARS-CoV-2 (PCR) Not detected, Influenza A Untype (PCR) Not detected, Influenza Type B (PCR) Not detected 08/19/23 01:56: VBG pH 7.33, VBG pCO2 33.7 L, VBG pO2 43.7 H, VBG HCO3 17.4 L, VBG Total CO2 18.5 L, VBG O2 Saturation 73.7 H, VBG Base Excess -8.5 L I & O for Last 24 hours: Intake & Output 08/16/23 08/17/23 08/18/23 08/19/23 23:59 23:59 23:59 23:59 Weight 90.718 kg Constitutional Constitutional: mild distress and cooperative *Routine HEENT Exam Head: Present normocephalic and atraumatic Eye: Present EOMI, PERRL and normal accommodation ENT: Present mucous membranes moist *Routine Neck Exam Neck: Present supple, full ROM and trachea midline *Routine Respiratory Exam Respiratory: Present prolonged expiratory phase, rales, respiratory distress, distant breath sounds and diminished air movement *Routine Cardiovascular Exam Cardiovascular: Present RRR, Normal S1, Normal S2 and tachycardia *Routine Abdominal Exam Abdominal: Present soft, normoactive bowel sounds and obese; Absent organomegaly *Routine Rectal Exam Rectal:: deferred *Routine Genitalia Exam Genitalia:: deferred *Routine Extremities Exam Extremities: Present edema, full ROM and pulses intact; Absent cyanosis or clubbing *Routine Skin Exam Skin: Present intact, dry and warm *Routine Neurological Exam Neurological: Present alert, oriented X3, normal reflexes, moving all extremities and normal speech Routine Psychiatric Exam Psychiatric: Present normal thought process, cooperative, good judgment and anxious H&P: Result Imaging and Cardiology EKG: Status: image reviewed by me and Preliminary report Chest x-ray: Status: image reviewed by me, Preliminary report and final report Assessment and Plan *Assessment and plan (1) Acute hypoxemic respiratory failure: Status: Acute Category: Medical Code(s): J96.01 - Acute respiratory failure with hypoxia (2) Acute exacerbation of CHF (congestive heart failure): Status: Acute Qualifiers: Heart failure type: unspecified Qualified Code(s): I50.9 - Heart failure, unspecified Category: Medical Code(s): I50.9 - Heart failure, unspecified (3) Pulmonary edema: Status: Acute Qualifiers: Chronicity: acute Qualified Code(s): J81.0 - Acute pulmonary edema Category: Medical Code(s): J81.1 - Chronic pulmonary edema (4) CHF (congestive heart failure): Status: Acute Qualifiers: Heart failure chronicity: chronic Heart failure type: unspecified Qualified Code(s): I50.9 - Heart failure, unspecified Category: Medical Code(s): I50.9 - Heart failure, unspecified (5) COPD (chronic obstructive pulmonary disease): Status: Acute Qualifiers: COPD type: unspecified COPD Qualified Code(s): J44.9 - Chronic obstructive pulmonary disease, unspecified Category: Medical Code(s): J44.9 - Chronic obstructive pulmonary disease, unspecified (6) HTN (hypertension): Status: Acute Qualifiers: Hypertension type: unspecified Qualified Code(s): I10 - Essential (primary) hypertension Category: Medical Code(s): I10 - Essential (primary) hypertension Plan 68-year-old male with PMHx of COPD, CHF, Hydrocephalus, HTN, PAD s/p iliac stent presented to the ER with concerns of shortness of breath. Started about one week ago and had acute worsening of shortness of breath in the last 24hrs. on arrival patient presented with mild tachycardia and on respiratory distress, low satting. Checks x-ray was obtained. Imaging reviewed. There is a concern for pulmonary edema, underlying patient cannot be excluded. Labs are remarkable for mild leukocytosis, elevated BNP. Patient underwent nebulizer treatment, IV Lasix, and board antibiotic was given. Findings discussed with the ER for admission. Plan as follows: -Acute hypoxic respiratory failure, secondary to pulmonary edema, due to exacerbation of congestive heart failure: Admit patient for medical services. Dispo Stepdown. Patient was on continuous BiPAP weaning off as tolerated. Respiratory therapy to assist DuoNeb every 6h Lasix 40 mg IV given in ER. Repeat another 40 mg. Monitor diuresis. Monitor renal output Echocardiogram ordered. Monitor a.m. labs Patient has vancomycin Zosyn and doxycycline at ER. We deferred the use of antibiotic, awaiting for clinical support of infection Respiratory panel negative -History of COPD, former smoker: Does not seems to be on exacerbation. Continue monitor Maximize O2 sats -Hypertension: Resume and reconcile home medication. On amlodipine carvedilol and hydralazine at home -History of hydrocephalus Conditions reviewed On home alprazolam for anxiety Patient on Plavix for PAD status post iliac stent. Continue Protonix for GI prophylaxis and GERD Full code Rounded on patient after nurse practitioner. Personally examined and interviewed patient. Agree with exam findings and care plan as documented.
--- NOTE | 2023-08-19 02:58 | PC.NURSE ---
ACUTE ADMISSION TO STEPDOWN WITH DX OF ACUTE RESP FAILURE, SEPSIS, PULMONARY EDEMA TO SERVICE OF PULMONARY EDEMA.
[2023-08-19] MEDS: VANCOMYCIN/WATER FOR INJ (PEG) 1.75 GM/350 ML PIGGYBACK IV (03:02)
--- NOTE | 2023-08-19 04:55 | PC.NURSE ---
Pt taken off BiPAP per Dr. Leung. Placed Pt on 6LPM NC tolerating well at this time SPO2 94%. Will continue to monitor.
[2023-08-19 05:17] LABS: Microscopic, Urine URINE MICROSCOPIC (MICROSCOPIC)
--- NOTE | 2023-08-19 05:38 | PC.NURSE ---
Patient arrived to floor via stretcher from ED at 5:36.
[2023-08-19 05:41] LABS: Appearance,Urine Clear (Clear); Bilirubin,Urine Negative (Negative); Blood, Urine Negative (Negative); Color,Urine Yellow (Yellow); Glucose,Urine (UA) Negative (Negative); Ketones,Urine Negative (Negative); Leukocyte Esterase,Urine Negative (Negative); Nitrate,Urine Negative (Negative); Protein,Urine Trace (Negative); Specific Gravity, Urine 1.015 (1.005-1.030); Urobilinogen,Urine 0.2 EU/dl (0.2)
[2023-08-19 05:50] LABS: Bacteria,Urine Trace /lpf; WBC,Urine Occasional #/hpf (0-3)
[2023-08-19 06:57] LABS: Basophils % 0.1 % (0.1-2.0); Eosinophils % 0.2 % (0.1-12.0); Hematocrit 43.2 % (42.0-52.0); Hemoglobin 14.2 g/dL (14.1-18.0); Lymphocytes # 0.6 K/mm3 (0.7-4.5); Lymphocytes % 5.5 % (10-50); Mean Corpuscular HGB Conc 32.8 g/dL (31.8-35.4); Mean Corpuscular Volume 94.4 fl (80-94); Monocytes # 0.2 K/mm3 (0.1-1.0); Monocytes % 1.5 % (1.7-9.3); Neutrophils % 92.7 % (37.0-80.0); Platelet Count 261 K/mm3 (142-424); Red Blood Count 4.57 M/mm3 (4.60-6.20); Red Cell Distribution Width 14.2 % (11.5-17.5); White Blood Count 10.8 K/mm3 (4.8-10.8)
[2023-08-19 06:59] LABS: MANUAL DIFFERENTIAL MANUAL DIFFERENTIAL (MANUAL DIFF)
--- NOTE | 2023-08-19 07:01 | PC.NURSE ---
Patient admitted from ER, report received by DWIGHT Singh. Patient admitted for increased SOA, sepsis, and pulmonary edema. Patient arrives to step down unit on 6LNC (required BIPAP in ER). Patients lungs have scattered crackles throughout. Patient uses no home oxygen. Patient went to bathroom refused to use urinal or bedside commode, oxygen desated to 75% on room air, NRB had to be placed for recovery. Patient recovered and was changed back to 6LNC. Patient is alert and oriented X4, wishes to be a DNI, form has been signed. Wishes to participate in meds to bed, form has been signed.
[2023-08-19 07:05] LABS: Alanine Aminotransferase 19 U/L (12-78); Albumin Level 4.1 g/dl (3.5-5.0); Albumin/Globulin Ratio 1.2 (1.1-1.8); Alkaline Phosphatase 82 U/L (38-126); Anion Gap 12.9 mEq/L (5-15); Aspartate Amino Transferase 23 U/L (17-59); Blood Urea Nitrogen 18 mg/dl (9-20); Calcium 8.4 mg/dl (8.4-10.2); Carbon Dioxide 20 mmol/L (22.0-30.0); Chloride 107 mmol/L (98-107); Creatinine Clearance Estimated 88 mL/min (50-200); Estimated Glomerular Filt Rate 74 ml/min (>60); GFR (African American) 90 ML/MIN (>60); Globulin 3.3 g/dL (1.3-3.2); Glucose 157 mg/dl (74-100); Potassium 3.9 mmoL/L (3.5-5.1); Sodium 136 mmol/L (136-145); Total Protein,Serum 7.4 g/dl (6.3-8.2)
[2023-08-19 07:16] LABS: Troponin I < 0.01 ng/ml (0.00-0.034)
[2023-08-19 07:32] LABS: Lymphocytes % 9 % (10-50); Monocytes % 1 % (2-9); Neutrophils % 90 % (42-76); Platelet Estimate Normal; RBC Morphology Normal; Total Cells Counted 100
--- NOTE | 2023-08-19 08:26 | EXP.PHA.CONS ---
Pharmacy Consult Date: 08/19/23 Time: 08:26 Referring provider: DR HALL Reason for Consult:: VANCOMYCIN DOSING CONSULT Allergies Allergy/AdvReac Type Severity Reaction Status Date / Time No Known Allergies Allergy Verified 08/22/20 20:12 Home Medications Medication Instructions Recorded Confirmed Type alprazolam 0.5 mg tablet,extended 0.5 mg PO HS Anxiety 02/15/22 08/19/23 History release 24 hr amlodipine 10 mg tablet 10 mg PO DAILY htn 02/15/22 08/19/23 History carvedilol 25 mg tablet 12.5 mg PO BID htn 02/15/22 08/19/23 History clopidogrel 75 mg tablet 75 mg PO DAILY antiplatelet 02/15/22 08/19/23 History finasteride 5 mg tablet 5 mg PO DAILY bph 02/15/22 08/19/23 History hydralazine 50 mg tablet 50 mg PO BID High blood pressure 02/15/22 08/19/23 History lisinopril 40 mg tablet 40 mg PO DAILY High blood pressure 02/15/22 08/19/23 History omeprazole 20 mg capsule,delayed 20 mg PO DAILY GERD 02/15/22 08/19/23 History release rosuvastatin 20 mg tablet 20 mg PO DAILY hld 02/15/22 08/19/23 History tramadol 50 mg tablet 50 mg PO NEEDED PRN sleep 08/19/23 08/19/23 History New Prescriptions to Start Prescriptions: Height: 1.73 m Weight: 89.018 kg Laboratory Results:: Laboratory Results - last 24 hr 08/19/23 01:50: WBC 14.5 H, RBC 5.00, Hgb 15.5, Hct 47.8, MCV 95.5 H, MCH 31.1, MCHC 32.5, RDW 14.2, Plt Count 303, MPV 7.8, Neut % (Auto) 84.6 H, Lymph % (Auto) 7.6 L, [place] % (Auto) 5.0, Eos % (Auto) 2.6, Baso % (Auto) 0.3, Neut # (Auto) 12.3 H, Lymph # (Auto) 1.1, [place] # (Auto) 0.7, Eos # (Auto) 0.4, Baso # (Auto) 0.0, Sodium 137, Potassium 4.3, Chloride 106, Carbon Dioxide 19 L, Anion Gap 16.3 H, BUN 20, Creatinine 1.10, Estimated Creat Clear 81, Estimated GFR 66, Est GFR ( Amer) 80, Glucose 168 H, Calcium 8.6, Total Bilirubin 0.7, AST 26, ALT 19, Alkaline Phosphatase 89, Troponin I < 0.01, NT-Pro-B Natriuret Pep 3110 H, Total Protein 7.8, Albumin 4.2, Globulin 3.6 H, Albumin/Globulin Ratio 1.2 08/19/23 01:54: SARS-CoV-2 (PCR) Not detected, Influenza A Untype (PCR) Not detected, Influenza Type B (PCR) Not detected 08/19/23 01:56: VBG pH 7.33, VBG pCO2 33.7 L, VBG pO2 43.7 H, VBG HCO3 17.4 L, VBG Total CO2 18.5 L, VBG O2 Saturation 73.7 H, VBG Base Excess -8.5 L 08/19/23 05:00: Urine Color Yellow, Urine Appearance Clear, Urine pH 6.0, Ur Specific [place] 1.015, Urine Protein Trace, Urine Glucose (UA) Negative, Urine Ketones Negative, Urine Blood Negative, Urine Nitrate Negative, Urine Bilirubin Negative, Urine Urobilinogen 0.2, Ur Leukocyte Esterase Negative, Urine RBC None, Urine WBC Occasional, Ur Squamous Epith Cells 3-5, Urine Bacteria Trace 08/19/23 06:23: WBC 10.8 D, RBC 4.57 L, Hgb 14.2, Hct 43.2, MCV 94.4 H, MCH 31.0, MCHC 32.8, RDW 14.2, Plt Count 261, MPV 8.0, Neut % (Auto) 92.7 H, Lymph % (Auto) 5.5 L, [place] % (Auto) 1.5 L, Eos % (Auto) 0.2, Baso % (Auto) 0.1, Neut # (Auto) 10.0 H, Lymph # (Auto) 0.6 L, [place] # (Auto) 0.2, Eos # (Auto) 0.0, Baso # (Auto) 0.0, Total Counted 100, Neutrophils % (Manual) 90 H, Lymphocytes % (Manual) 9 L, Monocytes % (Manual) 1 L, Platelet Estimate Normal, RBC Morphology Normal, Sodium 136, Potassium 3.9, Chloride 107, Carbon Dioxide 20 L, Anion Gap 12.9, BUN 18, Creatinine 1.00, Estimated Creat Clear 88, Estimated GFR 74, Est GFR ( Amer) 90, Glucose 157 H, Calcium 8.4, Total Bilirubin 1.0, AST 23, ALT 19, Alkaline Phosphatase 82, Troponin I < 0.01, Total Protein 7.4, Albumin 4.1, Globulin 3.3 H, Albumin/Globulin Ratio 1.2 Medical History: Medical History (Updated 08/19/23 @ 06:15 by Ortiz Mueller APRN) CHF (congestive heart failure) COPD (chronic obstructive pulmonary disease) Hydrocephalus Pulmonary fibrosis Assessment and Plan Assessment and plan all Dx Assessment and Plan for all problems:: Pharmacokinetic dosing service Objective: Age: 68 yo Serum creatinine: 1 mg/dL Height: 68.1 Inches Weight (kg): 89.018 Diagnosis: PNEUMONIA Assessment: IBW (kg): 68.63 Dosing wt(kg): 89.018 Estimated Creatinine clearance (ml/min): 67.7 CRCL method: Cockcroft and Gault using ibw(default). Drug selected: Vancomycin Loading dose (mg): 1750 MG Vd (liters): 62.3 (factor used: 0.7 L/kg) Sanju (hr-1): 0.061 Half life (hrs): 11.36 CLvanco=?? 3.800 L/hr Recommended dose: 1500 mg Interval: 18 hrs Infusion time (hrs): 2.0 Predicted peak (mcg/mL): 34.0 Predicted trough (mcg/mL): 12.81 Total body weight is being used for vancomycin dosing. Recommendations: Give Vancomycin 1500 mg q 18 hrs with an expected Cpeak of 34.0 mcg/ml and an expected Ctrough of 12.81 mcg/ml AUC 0-24 /ALBERTO Data: ALBERTO 0.5 mcg/mL:?? AUC/ALBERTO:? 1052.6 ALBERTO 1.0 mcg/mL:?? AUC/ALBERTO:? 526.3 --------- ALBERTO 1.5 mcg/mL:?? AUC/ALBERTO:? 350.9 ALBERTO 2.0 mcg/mL:?? AUC/ALBERTO:? 263.2 Thank you for the consult
--- NOTE | 2023-08-19 08:46 | HMH.PHAINT1 ---
Pharmacy Intervention Comments: MEDICATION RECONCILIATION COMPLETE USING EXTERNAL PHARMACY FILL HISTORY AND [facility]MANN REPORT.
[2023-08-19] MEDS: IRBESARTAN 75MG TABLET 75 MG PO (08:57)
[2023-08-19] MEDS: CARVEDILOL 12.5MG TABLET 12.5 MG PO ×2 (08:58→20:15)
[2023-08-19] MEDS: FINASTERIDE 5MG TABLET 5 MG PO (08:58)
[2023-08-19] MEDS: CLOPIDOGREL 75MG TAB 75 MG PO (08:58)
[2023-08-19] MEDS: CEFTRIAXONE SODIUM 1 GM in 0.9 % SODIUM CHLORIDE 50 ML IV (08:59)
[2023-08-19] MEDS: AZITHROMYCIN 500 MG in 0.9 % SODIUM CHLORIDE 250 ML 250 MG IV (09:29)
[2023-08-19 11:34] LABS: Adenovirus,PCR Not Detected (NotDetected); Coronavirus 19, PCR Not Detected (NotDetected); Coronavirus 229E Not Detected (NotDetected); Coronavirus NL63 Not Detected (NotDetected); Coronavirus OC43 Not Detected (NotDetected); Coronovirus HKU1,PCR Not Detected (NotDetected); Human Metapneumovirus Not Detected (NotDetected); Influenza A, PCR Not Detected (NotDetected); Influenza AH1, 2009 Not Detected (NotDetected); Influenza AH1, PCR Not Detected (NotDetected); Influenza AH3,PCR Not Detected (NotDetected); Influenza B, PCR Not Detected (NotDetected); Parainfluenza 1, PCR Not Detected (NotDetected); Parainfluenza 2, PCR Not Detected (NotDetected); Parainfluenza 3, PCR Not Detected (NotDetected); Parainfluenza 4, PCR Not Detected (NotDetected); Respiratory Syncytial Virus Not Detected (NotDetected); Rhinovirus/Enterovirus Not Detected (NotDetected)
[2023-08-19] MEDS: IPRATROPIUM/ALBUTEROL 3 ML NEB IH ×4 (12:02→22:33)
[2023-08-19] MEDS: predniSONE 20MG TAB 40 MG PO (12:31)
--- NOTE | 2023-08-19 15:46 | PC.NURSE ---
PT IS RESTING IN BED. ALERT AND ORIENTED X4. EATING AN DRINKING FAIR. O2 SATURATION MAINTAINS 90-95% ON 5 L NC AT REST. WHEN PT AMBULATES TO THE BATHROOM PT DESATS 78-80% ON 5 L. PT REFUSES TO USE THE URINAL AND TO VOID IN THE MEASURING HAT FOR THE TOILET. LUNG SOUNDS DIMINISHED. ABDOMEN SOFT/NON TENDER WITH ACTIVE BOWEL SOUNDS. SWELLING NOTED TO BLE. WILL CONTINUE TO MONITOR.
[2023-08-19] MEDS: FUROSEMIDE 40MG/4ML VIAL 80 MG IV (20:14)
[2023-08-19] MEDS: ACETAMINOPHEN 325MG TAB 650 MG PO (20:14)
[2023-08-19] MEDS: VANCOMYCIN/WATER FOR INJ (PEG) 1.5 GM/300 ML PIGGYBACK IV (20:14)
[2023-08-19] MEDS: ENOXAPARIN 40MG/0.4ML SYRINGE 40 MG SQ (20:15)
[2023-08-19] MEDS: ATORVASTATIN 40MG TABLET 40 MG PO (20:15)
[2023-08-19] MEDS: PANTOPRAZOLE 40MG TABLET 40 MG PO (20:15)
[2023-08-19] MEDS: AMLODIPINE 10MG TABLET 10 MG PO (20:31)
[2023-08-19] MEDS: LISINOPRIL 40 MG 40 EACH PO (20:32)
[2023-08-19] MEDS: HYDRALAZINE 50 MG 50 EACH PO (20:32)
[2023-08-19] MEDS: ALPRAZolam 0.5MG TABLET 0.5 MG PO (21:00)
[2023-08-20] VITALS (17 sets, daily range): BP systolic 96–148; BP diastolic 46–81; PULSE 67–96; RESP 18–22; TEMP 36.6–36.9; O2SAT 84–98; BMI 30.7
[2023-08-20] MEDS: IPRATROPIUM/ALBUTEROL 3 ML NEB IH ×5 (02:26→21:37)
--- NOTE | 2023-08-20 04:36 | PC.NURSE ---
Patient alert and oriented this shift. Titrated to 4L NC o2 sats above 90% when at rest, when patient up to restroom desats to low 80's but recovers quickly. Patient has been hypotensive this shift but denies symptoms. Patient up with standby assistance to restroom. Still refusing urinal and hat to get accurate output. Call reece and personal items in reach POC ongoing.
--- NOTE | 2023-08-20 06:00 | CA_ITS ---
APPROVED REPORT EXAM: Comprehensive 2D, Doppler, and color-flow Echocardiogram Enterprise Application Analyst: BRIANA Purdy, RVS Ht: 5 ft 8 in Wt: 200lbs BSA: 2.04 BP: 98/68 mmHg Indications: Respiratory failure, Hx-covid, Pulmonary fibrosis, Ex-smoker, COPD, Edema 2D Dimensions Left Atrium 3.81 cm M: 3.0 - 4.0 M-Mode Dimensions RVDd 2.53 cm (0.9-2.6) LA Diam 4.60 cm (1.9-4.0) LVDd 5.63 cm (3.5-5.7) LVDs 3.30 cm (3.5-5.7) IVSd 1.25 cm (0.6-1.1) PWd 0.97 cm (0.6-1.1) EF (Teich) 71.70% EPSs 0.48 cm FS 41.40% EDV (Teich) 155.60 mL TAPSE 2.13 (<1.7) ESV (Teich) 44.10 mL LV Diastology E Decel Time 237 (160-240 msec) E/A Ratio 1.14 MED A' 13.20 cm/s LAT A' 9.70 cm/s Aortic Valve LVEI Index 1.24 cm2/m2 AoV Peak Arsalan. 144.0 (50-130 cm/s) AO Peak GR. 8.30 mmHg AO Mean GR. 4.20 (<5 mmHg) AO VTI 30.0 (18-25 cm) LEVI (VTI) 2.60 (2.5-4.5 cm2) Mitral Valve MV A Velocity 77.0 (40-130 cm/s) E/A Ratio 1.14 Tricuspid Valve TR P. Velocity 295.00 cm/s Left Ventricle The left ventricle is normal size. The left ventricular systolic function is normal. The left ventricular ejection fraction is within the normal range. There is normal left ventricular wall thickness. There is mild hypokinesis of the distal inferior and inferolateral LV mcnulty. Diastolic function is indeterminate. LVEF is 55%. Right Ventricle The right ventricle is mildly dilated. Right ventricle is mildly hypokinetic. Atria The left atrium size is normal. Right atrium is mildly dilated. There is no Doppler evidence of interatrial shunt. Aortic Valve The aortic valve opens well. There is no aortic valvular stenosis. No aortic regurgitation is present. Mitral Valve The mitral valve is normal in structure. No evidence of mitral valve stenosis. Trace mitral regurgitation. Tricuspid Valve The tricuspid valve leaflets are thin and pliable. Mild tricuspid regurgitation. RVSP is 30-35 mmHg. Pulmonic Valve The pulmonary valve is normal in structure. Trace pulmonic regurgitation. Great Vessels The aortic root is normal in size. The ascending aorta is normal in size. IVC is normal in size and collapses >50% with inspiration. Pericardium There is no pericardial effusion. Other Information Study Quality: Fair Conclusion Normal biventricular systolic function, Mild hypokinesis of the distal inferior and inferolateral LV mcnulty. Mild TR. RVSP 30-35 mmHg. In the setting of mild regional wall motion abnormalities noted on TTE, further evaluation for ischemia is recommended. Electronically signed by : Yesica Gannon MD 08/20/2023 17:54:57
[2023-08-20 06:24] LABS: MANUAL DIFFERENTIAL MANUAL DIFFERENTIAL (MANUAL DIFF)
[2023-08-20 06:37] LABS: Basophils % 0.1 % (0.1-2.0); Lymphocytes # 0.9 K/mm3 (0.7-4.5); Lymphocytes % 7.8 % (10-50); Mean Corpuscular HGB Conc 32.2 g/dL (31.8-35.4); Mean Corpuscular Hemoglobin 31.1 pg (27.0-31.2); Mean Corpuscular Volume 96.7 fl (80-94); Mean Platelet Volume 8.2 fl (7.4-10.4); Monocytes # 0.8 K/mm3 (0.1-1.0); Monocytes % 6.6 % (1.7-9.3); Neutrophils # 10.2 K/mm3 (1.8-7.8); Neutrophils % 85.5 % (37.0-80.0); Platelet Count 260 K/mm3 (142-424); Red Blood Count 3.83 M/mm3 (4.60-6.20); Red Cell Distribution Width 14.7 % (11.5-17.5); White Blood Count 11.9 K/mm3 (4.8-10.8)
[2023-08-20 06:38] LABS: Anion Gap 8.6 mEq/L (5-15); Blood Urea Nitrogen 25 mg/dl (9-20); Calcium 8.2 mg/dl (8.4-10.2); Carbon Dioxide 25 mmol/L (22.0-30.0); Chloride 106 mmol/L (98-107); Creatinine Clearance Estimated 82 mL/min (50-200); Estimated Glomerular Filt Rate 66 ml/min (>60); GFR (African American) 80 ML/MIN (>60); Glucose 132 mg/dl (74-100); Potassium 3.6 mmoL/L (3.5-5.1); Sodium 136 mmol/L (136-145)
[2023-08-20 07:47] LABS: Lymphocytes % 10 % (10-50); Monocytes % 7 % (2-9); Neutrophils % 81 % (42-76); Total Cells Counted 100
[2023-08-20 07:48] LABS: RBC Morphology Normal
[2023-08-20 07:49] LABS: Platelet Estimate Normal
[2023-08-20] MEDS: predniSONE 20MG TAB 40 MG PO (08:47)
[2023-08-20] MEDS: FINASTERIDE 5MG TABLET 5 MG PO (08:47)
[2023-08-20] MEDS: IRBESARTAN 75MG TABLET 75 MG PO (08:47)
[2023-08-20] MEDS: CLOPIDOGREL 75MG TAB 75 MG PO (08:47)
[2023-08-20] MEDS: ENOXAPARIN 40MG/0.4ML SYRINGE 40 MG SQ (08:48)
[2023-08-20] MEDS: CARVEDILOL 12.5MG TABLET 12.5 MG PO ×2 (08:48→21:35)
--- NOTE | 2023-08-20 08:57 | PC.NURSE ---
PT iv painful when flushed to verify patency. at this time pt refuses to have new iv started as he wishes to be discharged home. [id number]
[2023-08-20 10:44] LABS: Hemoglobin 12.1 g/dL (14.1-18.0)
[2023-08-20] MEDS: FUROSEMIDE 40MG/4ML VIAL 40 MG IV ×2 (11:13→17:46)
[2023-08-20] MEDS: CEFTRIAXONE SODIUM 1 GM in 0.9 % SODIUM CHLORIDE 50 ML IV (11:14)
--- NOTE | 2023-08-20 11:18 | EXP.CARD.CON ---
History of Present Illness History of Present Illness Consult date: 08/20/23 Requesting physician: Adriana Segura Consult reason: shortness of breath Chief complaint: SOA Additional Medical History:: 1. Hypertension 2. Hyperlipidemia 3. Normal pressure hydrocephalus 4. History of tobacco use, discontinued about 6 months ago 5. PAD with history of bilateral iliac stenting 6. Abdominal aortic aneurysm, small per patient and followed by vascular surgery History of present illness: This is 68-year-old male with PMHx of COPD, CHF, Hydrocephalus, HTN, PAD s/p iliac stent presented to the ER with concerns of shortness of breath. Started about one week ago and had acute worsening of shortness of breath in the last 24hrs. As well as he noticed he had mild increase in peripheral swelling, patient does not take a diuretic. 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 He does not take any inhalers. Patient stated he does not have any chest pain, abdominal pain, no fevers or chills. stated because he was having increased work of breathing earlier today she gave him 500 mg of azithromycin that she had at home. Admitted for treatment and management. The above per Dr. Silveira. Advance noted above confirmed with the patient. No prior history of congestive heart failure and reports having a echocardiogram 2 months ago through his regular providers in [place] that showed only a leaky valve. No prior cardiac issues and no prior history of congestive heart failure per patient. Currently off of BiPAP therapy on nasal cannula oxygen but does have some conversational dyspnea. [facility] Disclaimer: The information contained in this section may have been updated after the patient was seen, as this information can be updated by other users. Medical History (Updated 08/20/23 @ 11:29 by JOSH Bush) CHF (congestive heart failure) COPD (chronic obstructive pulmonary disease) Hydrocephalus Pulmonary fibrosis Social History Smoking Status: Unknown if ever smoked alcohol intake: never current occupational status: other Travel in the last 8 weeks: None Review of Systems Constitutional Constitutional: Denies headache(s), Reports lethargy, Reports malaise and Denies weakness ENT Ears, Nose, Mouth, and Throat: Denies dizziness and Denies headache(s) *Cardiovascular Cardiovascular: Reports dyspnea and Reports dyspnea on exertion *Respiratory Respiratory: Reports dyspnea and Reports dyspnea on exertion *Musculoskeletal Musculoskeletal: Denies numbness and Denies tingling *Neurologic Neurologic: Denies dizziness, Denies headache(s), Denies numbness, Denies tingling and Denies weakness Exam Data for Last 24 hours Vital signs and Labs for Last 24 Hours: Temp Pulse Resp BP Pulse Ox O2 Del Method O2 Flow Rate 98.1 F 86 18 101/48 L 93 L Nasal Cannula 2 08/20/23 08:00 08/20/23 08:40 08/20/23 08:00 08/20/23 08:00 08/20/23 08:40 08/20/23 09:00 08/20/23 09:00 FiO2 5 08/19/23 14:00 Laboratory Results - last 24 hr 08/18/23 01:54: Chlamy pneumoniae PCR TNP, Adenovirus (PCR) Not detected, B. pertussis DNA (PCR) TNP, Coronavirus OC43 (PCR) Not detected, Coronavirus HKU1 (PCR) Not detected, Coronavirus 229E (PCR) Not detected, SARS-CoV-2 (PCR) Not detected, Coronavirus NL63 (PCR) Not detected, Human Metapneumovir PCR Not detected, Influenza A (H1) PCR Not detected, Influ A (H1N1/09) PCR Not detected, Influenza A (H3) PCR Not detected, Influenza Type A (PCR) Not detected, Influenza Type B (PCR) Not detected, M. pneumoniae (PCR) TNP, Parainfluenza 1 (PCR) Not detected, Parainfluenza 2 (PCR) Not detected, Parainfluenza 3 (PCR) Not detected, Parainfluenza 4 (PCR) Not detected, RSV (PCR) Not detected, Entero/Rhino (PCR) Not detected 08/20/23 06:14: WBC 11.9 H, RBC 3.83 L, Hgb 12.1 L D, Hct 37.0 L, MCV 96.7 H, MCH 31.1, MCHC 32.2, RDW 14.7, Plt Count 260, MPV 8.2, Neut % (Auto) 85.5 H, Lymph % (Auto) 7.8 L, [place] % (Auto) 6.6, Eos % (Auto) 0.0 L, Baso % (Auto) 0.1, Neut # (Auto) 10.2 H, Lymph # (Auto) 0.9, [place] # (Auto) 0.8, Eos # (Auto) 0.0, Baso # (Auto) 0.0, Total Counted 100, Neutrophils % (Manual) 81 H, Band Neutrophils % 2.0, Lymphocytes % (Manual) 10, Monocytes % (Manual) 7, Platelet Estimate Normal, RBC Morphology Normal, Sodium 136, Potassium 3.6, Chloride 106, Carbon Dioxide 25, Anion Gap 8.6, BUN 25 H D, Creatinine 1.10, Estimated Creat Clear 82, Estimated GFR 66, Est GFR ( Amer) 80, Glucose 132 H, Calcium 8.2 L I & O for Last 24 hours: Intake & Output 08/17/23 08/18/23 08/19/23 08/20/23 11:59 11:59 11:59 11:59 Intake Total 840 / 840 Output Total 0 / 0 0 / 0 Balance 0 / 0 840 / 840 Weight 196 lb 4 oz 202 lb 9 oz Constitutional Constitutional: mild distress *Routine Respiratory Exam Respiratory: Present decreased breath sounds, crackles and diminished air movement *Routine Cardiovascular Exam Cardiovascular: Present RRR; Absent murmur, gallop or rubs *Routine Extremities Exam Extremities: Present edema *Routine Neurological Exam Neurological: Present alert, oriented X3 and CN II-XII intact Meds Home Medications and Allergies Home Medications Medication Instructions Recorded Confirmed Type amlodipine 10 mg tablet 10 mg PO DAILY High Blood Pressure 02/15/22 08/19/23 History carvedilol 25 mg tablet 12.5 mg PO BID High Blood Pressure 02/15/22 08/19/23 History clopidogrel 75 mg tablet 75 mg PO DAILY Blood Thinner 02/15/22 08/19/23 History finasteride 5 mg tablet 5 mg PO DAILY PROSTATE HEALTH 02/15/22 08/19/23 History hydralazine 50 mg tablet 50 mg PO TID High blood pressure 02/15/22 08/19/23 History lisinopril 40 mg tablet 40 mg PO DAILY High blood pressure 02/15/22 08/19/23 History omeprazole 20 mg capsule,delayed 20 mg PO DAILY Acid Reflux 02/15/22 08/19/23 History release rosuvastatin 20 mg tablet 20 mg PO DAILY Cholesterol 02/15/22 08/19/23 History alprazolam 0.5 mg tablet 0.5 mg PO HS Anxiety 08/19/23 08/19/23 History New Prescriptions to Start Prescriptions: Allergies Allergy/AdvReac Type Severity Reaction Status Date / Time No Known Allergies Allergy Verified 08/22/20 20:12 Assessment and Plan *Assessment and plan (1) Acute hypoxemic respiratory failure: Status: Acute Category: Medical Code(s): J96.01 - Acute respiratory failure with hypoxia (2) Community acquired pneumonia: Status: Acute Qualifiers: Laterality: unspecified laterality Qualified Code(s): J18.9 - Pneumonia, unspecified organism Category: Medical Code(s): J18.9 - Pneumonia, unspecified organism (3) CHF (congestive heart failure): Status: Acute Qualifiers: Heart failure chronicity: chronic Heart failure type: unspecified Qualified Code(s): I50.9 - Heart failure, unspecified Category: Medical Code(s): I50.9 - Heart failure, unspecified (4) COPD (chronic obstructive pulmonary disease): Status: Acute Qualifiers: COPD type: unspecified COPD Qualified Code(s): J44.9 - Chronic obstructive pulmonary disease, unspecified Category: Medical Code(s): J44.9 - Chronic obstructive pulmonary disease, unspecified (5) Dyspnea: Status: Acute Qualifiers: Dyspnea type: shortness of breath Qualified Code(s): R06.02 - Shortness of breath Category: Medical Code(s): R06.00 - Dyspnea, unspecified (6) HTN (hypertension): Status: Acute Qualifiers: Hypertension type: unspecified Qualified Code(s): I10 - Essential (primary) hypertension Category: Medical Code(s): I10 - Essential (primary) hypertension (7) Pulmonary fibrosis: Status: Acute Category: Medical Code(s): J84.10 - Pulmonary fibrosis, unspecified Plan 1. Acute hypoxic respiratory failure with pneumonia and congestive heart failure -Continue supplemental oxygen as needed -Continue IV antibiotics per hospitalist -Continue IV Lasix -Echocardiogram shows normal LV with mildly increased RV size with mildly decreased RV function with RVSP of 30-35 mmHg. -Recommend pulmonary evaluation due to multifocal opacities and history of pulmonary fibrosis 2. History of hypertension -Review echo to look for diastolic congestive heart failure 3. COPD with history of tobacco use -History of pulmonary fibrosis related to COVID infection remotely -Per patient he saw a zumba instructor last year in [place] that told him his fibrosis and COPD was stable 4. Normal pressure hydrocephalus per patient -No treatment at this time CTA of the chest today to further define etiology of his shortness of breath, including possible pulmonary embolus, worsening pulmonary fibrosis or pneumonia Discussed planning to proceed with right heart catheterization tomorrow if no significant etiology identified and to guide further diuretic therapy.
--- NOTE | 2023-08-20 12:18 | PC.NURSE ---
Asked pt if he wanted to take a shower. Pt refused and stated he wanted to wait until his got there.
--- NOTE | 2023-08-20 13:33 | P.PN_ITS ---
Subjective *Date: 08/21/23 *Time: 17:32 Interval history: patient was seen and evaluated at the bedside. has SOB on exertion and walking, No reported acute events overnight, denies chest pain, shortness of breath at rest, nausea, vomiting, abdominal pain. Exam Data for Last 24 hours Vital signs and Labs for Last 24 Hours: Temp Pulse Resp BP Pulse Ox O2 Del Method O2 Flow Rate 98.5 F 95 H 20 147/81 H 91 L Nasal Cannula 2 08/20/23 12:08/20/23 12:08/20/23 12:08/20/23 12:08/20/23 12:00 08/20/23 12:00 08/20/23 12:00 FiO2 5 08/19/23 14:00 Laboratory Results - last 24 hr 08/20/23 06:14: WBC 11.9 H, RBC 3.83 L, Hgb 12.1 L D, Hct 37.0 L, MCV 96.7 H, MCH 31.1, MCHC 32.2, RDW 14.7, Plt Count 260, MPV 8.2, Neut % (Auto) 85.5 H, Lymph % (Auto) 7.8 L, [place] % (Auto) 6.6, Eos % (Auto) 0.0 L, Baso % (Auto) 0.1, Neut # (Auto) 10.2 H, Lymph # (Auto) 0.9, [place] # (Auto) 0.8, Eos # (Auto) 0.0, Baso # (Auto) 0.0, Total Counted 100, Neutrophils % (Manual) 81 H, Band Neutrophils % 2.0, Lymphocytes % (Manual) 10, Monocytes % (Manual) 7, Platelet Estimate Normal, RBC Morphology Normal, Sodium 136, Potassium 3.6, Chloride 106, Carbon Dioxide 25, Anion Gap 8.6, BUN 25 H D, Creatinine 1.10, Estimated Creat Clear 82, Estimated GFR 66, Est GFR ( Amer) 80, Glucose 132 H, Calcium 8.2 L I & O for Last 24 hours: Intake & Output 08/17/23 08/18/23 08/19/23 08/20/23 23:59 23:59 23:59 23:59 Intake Total 540 / 840 300 / 300 Output Total 0 / 0 0 / 0 Balance 540 / 840 300 / 300 Weight 89.018 kg 91.881 kg Constitutional Constitutional: no acute distress *Routine HEENT Exam Head: Present normocephalic Eye: Present EOMI and PERRL ENT: Present mucous membranes moist *Routine Neck Exam Neck: Present supple; Absent lymphadenopathy *Routine Respiratory Exam Respiratory: Present crackles *Routine Cardiovascular Exam Cardiovascular: Present RRR *Routine Abdominal Exam Abdominal: Present soft and normoactive bowel sounds; Absent tenderness *Routine Extremities Exam Extremities: Present edema; Absent cyanosis or clubbing Comments: has b/l LE edema *Routine Skin Exam Skin: Present warm; Absent rash *Routine Neurological Exam Neurological: Present alert and oriented X3 Assessment and Plan *Assessment and plan (1) Acute hypoxemic respiratory failure: Status: Acute Category: Medical Code(s): J96.01 - Acute respiratory failure with hypoxia (2) Acute exacerbation of CHF (congestive heart failure): Status: Acute Qualifiers: Heart failure type: unspecified Qualified Code(s): I50.9 - Heart failure, unspecified Category: Medical Code(s): I50.9 - Heart failure, unspecified (3) Pulmonary edema: Status: Acute Qualifiers: Chronicity: acute Qualified Code(s): J81.0 - Acute pulmonary edema Category: Medical Code(s): J81.1 - Chronic pulmonary edema (4) CHF (congestive heart failure): Status: Acute Qualifiers: Heart failure chronicity: chronic Heart failure type: unspecified Qualified Code(s): I50.9 - Heart failure, unspecified Category: Medical Code(s): I50.9 - Heart failure, unspecified (5) COPD (chronic obstructive pulmonary disease): Status: Acute Qualifiers: COPD type: unspecified COPD Qualified Code(s): J44.9 - Chronic obstructive pulmonary disease, unspecified Category: Medical Code(s): J44.9 - Chronic obstructive pulmonary disease, unspecified (6) HTN (hypertension): Status: Acute Qualifiers: Hypertension type: unspecified Qualified Code(s): I10 - Essential (primary) hypertension Category: Medical Code(s): I10 - Essential (primary) hypertension Plan 68-year-old male with PMHx of COPD, CHF, Hydrocephalus, HTN, PAD s/p iliac stent presented to the ER with concerns of shortness of breath. Started about one week ago and had acute worsening of shortness of breath in the last 24hrs. o n arrival patient presented with mild tachycardia and on respiratory distress, low satting. Checks x-ray was obtained. Imaging reviewed. There is a concern for pulmonary edema, underlying patient cannot be excluded. Labs are remarkable for mild leukocytosis, elevated BNP. Patient underwent nebulizer treatment, IV Lasix, and board antibiotic was given. Findings discussed with the ER for admis emilia. Plan as follows: -Acute hypoxic respiratory failure, secondary to pulmonary edema, due to exacerbation of congestive heart failure: Respiratory therapy to assist DuoNeb every 6h Lasix 40 mg IV given in ER. Repeat another 40 mg. Monitor diuresis. Monitor renal output Echocardiogram ordered. Monitor a.m. labs Patient has vancomycin Zosyn and doxycycline at ER. We deferred the use of antibiotic, awaiting for clinical support of infection Respiratory panel negative -History of COPD, former smoker: Does not seems to be on exacerbation. Continue monitor Maximize O2 sats -Hypertension: Resume and reconcile home medication. On amlodipine carvedilol and hydralazine at home -History of hydrocephalus Conditions reviewed On home alprazolam for anxiety Patient on Plavix for PAD status post iliac stent. Continue Protonix for GI prophylaxis and GERD Full code Rounded on patient after nurse practitioner. Personally examined and interviewed patient. Agree with exam findings and care plan as documented.
[2023-08-20] MEDS: AZITHROMYCIN 500 MG in 0.9 % SODIUM CHLORIDE 250 ML 250 MG IV (13:41)
--- NOTE | 2023-08-20 14:09 | CT_ITS ---
FINAL REPORT CLINICAL HISTORY: SOA, pulmonary Fibrosis/COPD COMPARISON: None FINDINGS: Thin section axial CT images of the chest were obtained with contrast. 3D reformatted images were also obtained. This study was performed with techniques to keep radiation doses as low as reasonably achievable (ALARA). Individualized dose reduction techniques using automated exposure control or adjustment of mA and/or kV according to the patient's size were employed. There is no evidence of pulmonary embolism. There is no evidence of thoracic aortic aneurysm or dissection. There is mild mediastinal and hilar adenopathy, favor inflammatory over neoplastic. There are moderate changes of interstitial fibrosis with honeycombing bilaterally. There are mild patchy ground glass opacities identified in the lung kapoor bilaterally, edema versus pneumonia. Limited images of the upper abdomen are unremarkable. IMPRESSION: No evidence of pulmonary embolism. Moderate interstitial fibrosis with honeycombing. Mild mediastinal and hilar adenopathy, favor inflammatory over neoplastic. Would recommend a follow-up CT in 3 to 6 months or PET/CT for further evaluation. Mild patchy ground glass opacities, edema versus pneumonia. A small right pleural effusion is present as well. Reviewed, Interpreted and Dictated by Bin Matute III, MD Transcribed by Vira Fontaine Authenticated and [facility]
[2023-08-20] MEDS: IOPAMIDOL-370 (76%);100ML BOTTLE 70 ML IV (14:39)
[2023-08-20] MEDS: 0.9 % SODIUM CHLORIDE 50 ML VIAL IV (14:39)
[2023-08-20] MEDS: SODIUM CHLORIDE 0.9% 10ML SYR (RAD ONLY) 10 ML IV (14:39)
--- NOTE | 2023-08-20 15:11 | EXP.PULM.CON ---
History of Present Illness History of present illness: Mr. Dunlap is a 68-year-old male with reported history of COPD, CHF, hydrocephalus, hypertension, peripheral vascular disease presented to the hospital worsening respiratory distress and pulmonary was called for further evaluation and management. Patient also reported worsening lower extremity swelling. [facility] Disclaimer: The information contained in this section may have been updated after the patient was seen, as this information can be updated by other users. Medical History (Updated 08/20/23 @ 16:47 by Melisa Fraire MD) CHF (congestive heart failure) COPD (chronic obstructive pulmonary disease) Hydrocephalus Mediastinal lymphadenopathy Pneumonia Pulmonary fibrosis Social History Smoking Status: Unknown if ever smoked alcohol intake: never current occupational status: other Travel in the last 8 weeks: None Review of Systems Constitutional Constitutional: Reports fatigue, Denies headache(s) and Denies weakness Eyes Eyes: Denies eye discharge, Denies dry eyes, Denies irritation and Denies itchy eyes ENT Ears, Nose, Mouth, and Throat: Denies dizziness, Denies headache(s), Denies lip swelling and Denies throat swelling *Cardiovascular Cardiovascular: Reports dyspnea, Reports dyspnea on exertion, Reports leg edema and Reports pedal edema *Respiratory Respiratory: Reports chest congestion, Reports cough, Reports dyspnea, Reports dyspnea on exertion, Denies excessive phlegm production, Denies hemoptysis and Denies wheezing *Gastrointestinal Gastrointestinal: Denies abdominal pain, Denies belching and Denies cramping *Musculoskeletal Musculoskeletal: Denies numbness and Denies tingling *Neurologic Neurologic: Denies dizziness, Denies headache(s), Denies numbness, Denies tingling and Denies weakness Psychiatric Psychiatric: Denies homicidal ideation and Denies suicidal ideation Endocrine Endocrine: Reports fatigue and Denies heat intolerance Hematologic/Lymphatic Hematologic/Lymphatic: Denies easy bleeding and Denies lymphadenopathy Allergic/Immunologic Allergic/Immunologic: Denies itchy eyes, Denies lip swelling, Denies throat swelling and Denies wheezing Pulmonology Exam Inpatient Vital signs and Labs for Last 24 Hours: Temp Pulse Resp BP Pulse Ox O2 Del Method O2 Flow Rate 98.5 F 85 20 147/81 H 95 Nasal Cannula 2 08/20/23 12:00 08/20/23 13:44 08/20/23 12:00 08/20/23 12:00 08/20/23 13:44 08/20/23 14:46 08/20/23 14:46 FiO2 5 08/19/23 14:00 Laboratory Results - last 24 hr 08/20/23 06:14: WBC 11.9 H, RBC 3.83 L, Hgb 12.1 L D, Hct 37.0 L, MCV 96.7 H, MCH 31.1, MCHC 32.2, RDW 14.7, Plt Count 260, MPV 8.2, Neut % (Auto) 85.5 H, Lymph % (Auto) 7.8 L, [place] % (Auto) 6.6, Eos % (Auto) 0.0 L, Baso % (Auto) 0.1, Neut # (Auto) 10.2 H, Lymph # (Auto) 0.9, [place] # (Auto) 0.8, Eos # (Auto) 0.0, Baso # (Auto) 0.0, Total Counted 100, Neutrophils % (Manual) 81 H, Band Neutrophils % 2.0, Lymphocytes % (Manual) 10, Monocytes % (Manual) 7, Platelet Estimate Normal, RBC Morphology Normal, Sodium 136, Potassium 3.6, Chloride 106, Carbon Dioxide 25, Anion Gap 8.6, BUN 25 H D, Creatinine 1.10, Estimated Creat Clear 82, Estimated GFR 66, Est GFR ( Amer) 80, Glucose 132 H, Calcium 8.2 L I & O for Labs for Last 24 Hours: Intake & Output 08/17/23 08/18/23 08/19/23 08/20/23 23:59 23:59 23:59 23:59 Intake Total 540 / 840 300 / 300 Output Total 0 / 0 0 / 0 Balance 540 / 840 300 / 300 Weight 196 lb 4 oz 202 lb 9 oz Constitutional: Present moderate distress Head: Present normocephalic and atraumatic ENT: Present normal exam, normal oropharynx and mucous membranes moist Neck: Present normal inspection and full ROM Respiratory: Present rales, respiratory distress and able to speak in complete sentences; Absent wheezes Cardiac: Present S1/S2, Tachycardia and radial pulses present GI: Present soft and distention; Absent tenderness or guarding Skin: Present intact; Absent cyanosis or jaundice Neuro: Present alert, awake and oriented x 3 Extremities: Present normal inspection; Absent clubbing or cyanosis Psychiatric: Present normal affect and cooperative Meds Home Medications and Allergies Home Medications Medication Instructions Recorded Confirmed Type amlodipine 10 mg tablet 10 mg PO DAILY High Blood Pressure 02/15/22 08/19/23 History carvedilol 25 mg tablet 12.5 mg PO BID High Blood Pressure 02/15/22 08/19/23 History clopidogrel 75 mg tablet 75 mg PO DAILY Blood Thinner 02/15/22 08/19/23 History finasteride 5 mg tablet 5 mg PO DAILY PROSTATE HEALTH 02/15/22 08/19/23 History hydralazine 50 mg tablet 50 mg PO TID High blood pressure 02/15/22 08/19/23 History lisinopril 40 mg tablet 40 mg PO DAILY High blood pressure 02/15/22 08/19/23 History omeprazole 20 mg capsule,delayed 20 mg PO DAILY Acid Reflux 02/15/22 08/19/23 History release rosuvastatin 20 mg tablet 20 mg PO DAILY Cholesterol 02/15/22 08/19/23 History alprazolam 0.5 mg tablet 0.5 mg PO HS Anxiety 08/19/23 08/19/23 History New Prescriptions to Start Prescriptions: Allergies Allergy/AdvReac Type Severity Reaction Status Date / Time No Known Allergies Allergy Verified 08/22/20 20:12 Results Laboratory Findings 08/20/23 06:14 08/20/23 06:14 Abnormal lab findings: Abnormal Labs 08/19/23 08/19/23 08/19/23 01:50 01:56 06:23 WBC 14.5 H RBC 4.57 L Hgb Hct MCV 95.5 H 94.4 H Neut % (Auto) 84.6 H 92.7 H Lymph % (Auto) 7.6 L 5.5 L [place] % (Auto) 1.5 L Eos % (Auto) Neut # (Auto) 12.3 H 10.0 H Lymph # (Auto) 0.6 L Neutrophils % (Manual) 90 H Lymphocytes % (Manual) 9 L Monocytes % (Manual) 1 L VBG pCO2 33.7 L VBG pO2 43.7 H VBG HCO3 17.4 L VBG Total CO2 18.5 L VBG O2 Saturation 73.7 H VBG Base Excess -8.5 L Carbon Dioxide 19 L 20 L Anion Gap 16.3 H BUN Glucose 168 H 157 H Calcium NT-Pro-B Natriuret Pep 3110 H Globulin 3.6 H 3.3 H 08/20/23 06:14 WBC 11.9 H RBC 3.83 L Hgb 12.1 L D Hct 37.0 L MCV 96.7 H Neut % (Auto) 85.5 H Lymph % (Auto) 7.8 L [place] % (Auto) Eos % (Auto) 0.0 L Neut # (Auto) 10.2 H Lymph # (Auto) Neutrophils % (Manual) 81 H Lymphocytes % (Manual) Monocytes % (Manual) VBG pCO2 VBG pO2 VBG HCO3 VBG Total CO2 VBG O2 Saturation VBG Base Excess Carbon Dioxide Anion Gap BUN 25 H D Glucose 132 H Calcium 8.2 L NT-Pro-B Natriuret Pep Globulin Assessment and Plan *Assessment and plan (1) Pulmonary fibrosis: Status: Acute Category: Medical Code(s): J84.10 - Pulmonary fibrosis, unspecified (2) Mediastinal lymphadenopathy: Status: Acute Category: Medical Code(s): R59.0 - Localized enlarged lymph nodes (3) Pneumonia: Status: Acute Qualifiers: Aspiration pneumonia type: unspecified Laterality: left Lung location: upper lobe of lung Category: Medical Code(s): J18.9 - Pneumonia, unspecified organism Plan Mr. Dunlap is a 68-year-old male with reported history of COPD, CHF, hydrocephalus, hypertension, peripheral vascular disease presented to the hospital worsening respiratory distress and pulmonary was called for further evaluation and management. Patient also reported worsening lower extremity swelling. He does report a history of prior COVID-19 1 year leading to pulmonary fibrosis. CT ANo evidence of pulmonary embolism. Bilateral predominantly subpleural honeycombing and fibrotic changes not entirely typical with COVID-related pulmonary fibrosis though rarely seen. Also noted to have subpleural bullous lesions Concerning for other underlying interstitial lung disease or CPFE. CT also showed large right upper lobe calcified lung nodule along with right pleural effusion. Faint GGO predominantly on SUMEET. As per the patient he has been seeing kiln tender at [facility] for the last 2 years did not remember any autoimmune workup performed however remembers getting annual CT scans and reported to be having stable pulmonary fibrosis. Appears that his fibrosis has been attributed to his history of COVID-19 pneumonia at this point of time. ILD review of systems negative. Denies any family Struve autoimmune disorders. Admits recurrent infectious mononucleosis infections within himself and his daughter, if this is the case chronic active Omega-Alfonso's virus infection is also associated with interstitial pneumonia/pulmonary fibrosis. CRP elevated at 33.3 Patient is currently having acute hypoxic respiratory failure needing new oxygen requirements, he is on [address] showed left upper lobe groundglass opacity along with right pleural effusion will continue to receive diuretics. Will continue to treat for community-acquired pneumonia at this point of time. Will follow with comprehensive respiratory viral panel. For the noted pulmonary fibrosis we will follow the patient as an outpatient basis to further determine the etiology and possible right heart cath to rule out the possibility of pulmonary arterial hypertension. Plan: -Comprehensive respiratory viral PCR panel -Follow with YANNI and CRP -Continue ceftriaxone azithromycin pending sputum culture results -Continue DuoNebs every 6 hours scheduled -Initiate prednisone 40 mg daily
[2023-08-20] MEDS: ACETAMINOPHEN 325MG TAB 650 MG PO (15:22)
[2023-08-20 16:02] LABS: C-Reactive Protein 33.3 mg/L (0-4)
[2023-08-20] MEDS: VANCOMYCIN/WATER FOR INJ (PEG) 1.5 GM/300 ML PIGGYBACK IV (17:46)
--- NOTE | 2023-08-20 18:54 | PC.NURSE ---
Pt has been ambulatory to and from the restroom with assistance this shift. pt is a/o x 4 and has 2lpm of o2 on at this time r/t room air sat of 81%. pt lung sounds are clear with faint crackles in amina bases. bowel sounds are active in all quads. pt has had 2 bm this shift. nad noted. pt has refused to void per any type of measuring device this shift. unable to document accurate i/o
[2023-08-20] MEDS: PANTOPRAZOLE 40MG TABLET 40 MG PO (21:35)
[2023-08-20] MEDS: ATORVASTATIN 40MG TABLET 40 MG PO (21:35)
[2023-08-21] VITALS (27 sets, daily range): BP systolic 93–155; BP diastolic 41–81; PULSE 53–88; RESP 16–20; TEMP 36.6–36.8; O2SAT 87–100
--- NOTE | 2023-08-21 | IR_ITS ---
APPROVED REPORT Patient Location: Inpatient Engineering Faculty: EMILEE Villa RT (R) PROCEDURES Right heart catheterization Left heart catheterization Left ventriculogram Selective coronary angiogram INDICATION Abnormal echocardiogram with regional wall motion abnormality, Pulmonary fibrosis, Dyspnea, Pulmonary hypertension, Informed consent was obtained prior to the procedure. COMPLICATIONS None Estimated Blood Loss: Less than 10 mls TECHNIQUE One percent lidocaine used to anesthetize the right anterior aspect of the wrist. The right radial artery was accessed via the Seldinger technique. A 6 [place] sheath was placed in the right radial artery. 2.5 mg of Verapamil, 800 mcg of nitroglycerin, 1mg Lidocaine and 5000 U Heparin were given through the arterial sheath. The papa catheter was also used to perform left heart catheterization, left ventriculogram and selective coronary angiogram. At the end of the procedure the sheath was removed good hemostasis was achieved using Traclet band, patient was transferred to the postop holding area in stable condition. One percent lidocaine was used to anesthetize the right anterior aspect of the neck. A program director scouting needle was used to identify the right internal jugular vein. Following this a larger cannulation needle was used to cannulate the right internal jugular vein and a wire was passed into the vein. Prior to the 7 [place] sheath being inserted the wire was confirmed under fluoroscopic guidance to be in the inferior vena cava. A 7 [place] sheath was introduced and a [place] catheter was floated using hemodynamic waveforms in the pulmonary artery, right ventricle , and right atrium. Saturations were obtained in the pulmonary artery and the right atrium. At the end of the procedure the patient was transferred to the postop holding area in stable condition for sheath removal. ANGIOGRAPHIC RESULTS The left main artery Normal The left anterior descending artery Approximately normal with mid vessel mild 30% systolic myocardial bridge The circumflex artery Nondominant mild 10% luminal irregularities The right coronary artery Dominant with mid vessel 10 to 20% stenosis The SAXENA ventriculogram reveals Normal 60% The left ventricular end-diastolic pressure 10 mmHg Right atrial pressure 10 mmHg Pulmonary artery pressure 45/20 mmHg Pulmonary artery occlusion pressure 8 mmHg Right atrial saturation 75% Pulmonary artery saturation 75% Aortic saturation 98% Hemoglobin 12.1 Cardiac output 6.8 L/min Cardiac index 3.3 IMPRESSION Mild nonflow limiting coronary disease Mild mid LAD myocardial bridge Normal ejection fraction Normal left ventricular diastolic pressure Mild to moderate pulmonary hypertension unrelated to left ventricular etiologies PLAN 1. Medical management Electronically signed by : Antolin Hinson MD 08/21/2023 14:03:30
[2023-08-21 02:33] LABS: Adenovirus,PCR Not Detected (NotDetected); Coronavirus 19, PCR Not Detected (NotDetected); Coronavirus 229E Not Detected (NotDetected); Coronavirus NL63 Not Detected (NotDetected); Coronavirus OC43 Not Detected (NotDetected); Coronovirus HKU1,PCR Not Detected (NotDetected); Human Metapneumovirus Not Detected (NotDetected); Influenza A, PCR Not Detected (NotDetected); Influenza AH1, 2009 Not Detected (NotDetected); Influenza AH1, PCR Not Detected (NotDetected); Influenza AH3,PCR Not Detected (NotDetected); Influenza B, PCR Not Detected (NotDetected); Parainfluenza 1, PCR Not Detected (NotDetected); Parainfluenza 2, PCR Not Detected (NotDetected); Parainfluenza 3, PCR Not Detected (NotDetected); Parainfluenza 4, PCR Not Detected (NotDetected); Respiratory Syncytial Virus Not Detected (NotDetected); Rhinovirus/Enterovirus Not Detected (NotDetected)
--- NOTE | 2023-08-21 04:53 | PC.NURSE ---
Pt is A&Ox4 and is currently on 2L of O2 and sating in the high 90s. Pt refused shower offered by tech early in the shift, stated that he had one that morning. small clean up before procedure was offered to pt and pt agreed. Pt has rested well this shift, pt denies pain and needs at this time
[2023-08-21] MEDS: IPRATROPIUM/ALBUTEROL 3 ML NEB IH ×3 (05:55→18:29)
[2023-08-21 06:24] LABS: MANUAL DIFFERENTIAL MANUAL DIFFERENTIAL (MANUAL DIFF)
[2023-08-21 06:25] LABS: Basophils % 0.1 % (0.1-2.0); Eosinophils % 0.2 % (0.1-12.0); Hematocrit 37.5 % (42.0-52.0); Hemoglobin 12.2 g/dL (14.1-18.0); Lymphocytes # 1.8 K/mm3 (0.7-4.5); Lymphocytes % 16.2 % (10-50); Mean Corpuscular HGB Conc 32.5 g/dL (31.8-35.4); Mean Corpuscular Hemoglobin 31.2 pg (27.0-31.2); Mean Corpuscular Volume 95.9 fl (80-94); Mean Platelet Volume 8.3 fl (7.4-10.4); Monocytes # 0.8 K/mm3 (0.1-1.0); Monocytes % 6.6 % (1.7-9.3); Neutrophils # 8.7 K/mm3 (1.8-7.8); Platelet Count 313 K/mm3 (142-424); Red Blood Count 3.92 M/mm3 (4.60-6.20); Red Cell Distribution Width 14.5 % (11.5-17.5); White Blood Count 11.4 K/mm3 (4.8-10.8)
[2023-08-21 06:36] LABS: Calcium 8.2 mg/dl (8.4-10.2); Creatinine Clearance Estimated 81 mL/min (50-200); Estimated Glomerular Filt Rate 66 ml/min (>60); GFR (African American) 80 ML/MIN (>60)
[2023-08-21 07:08] LABS: Anion Gap 9.2 mEq/L (5-15); Blood Urea Nitrogen 28 mg/dl (9-20); Carbon Dioxide 25 mmol/L (22.0-30.0); Chloride 105 mmol/L (98-107); Glucose 104 mg/dl (74-100); Potassium 3.2 mmoL/L (3.5-5.1); Sodium 136 mmol/L (136-145)
[2023-08-21 08:05] LABS: Lymphocytes % 10 % (10-50); Monocytes % 4 % (2-9); Neutrophils % 86 % (42-76); Platelet Estimate Normal; RBC Morphology Normal; Total Cells Counted 100
--- NOTE | 2023-08-21 08:19 | PC.NURSE ---
Home Medications Henri Dunlap Medication Instructions Recorded Confirmed amlodipine 10 mg tablet 10 mg PO DAILY High Blood Pressure 02/15/22 08/19/23 carvedilol 25 mg tablet 12.5 mg PO BID High Blood Pressure 02/15/22 08/19/23 clopidogrel 75 mg tablet 75 mg PO DAILY Blood Thinner 02/15/22 08/19/23 finasteride 5 mg tablet 5 mg PO DAILY PROSTATE HEALTH 02/15/22 08/19/23 hydralazine 50 mg tablet 50 mg PO TID High blood pressure 02/15/22 08/19/23 lisinopril 40 mg tablet 40 mg PO DAILY High blood pressure 02/15/22 08/19/23 omeprazole 20 mg capsule,delayed 20 mg PO DAILY Acid Reflux 02/15/22 08/19/23 release rosuvastatin 20 mg tablet 20 mg PO DAILY Cholesterol 02/15/22 08/19/23 alprazolam 0.5 mg tablet 0.5 mg PO HS Anxiety 08/19/23 08/19/23
[2023-08-21] MEDS: CEFTRIAXONE SODIUM 1 GM in 0.9 % SODIUM CHLORIDE 50 ML IV (08:28)
[2023-08-21] MEDS: AMLODIPINE 10MG TABLET 10 MG PO (08:29)
[2023-08-21] MEDS: CARVEDILOL 12.5MG TABLET 12.5 MG PO ×2 (08:29→21:14)
[2023-08-21] MEDS: CLOPIDOGREL 75MG TAB 75 MG PO (08:29)
[2023-08-21] MEDS: IRBESARTAN 75MG TABLET 75 MG PO (08:29)
[2023-08-21] MEDS: FINASTERIDE 5MG TABLET 5 MG PO (08:29)
[2023-08-21] MEDS: ENOXAPARIN 40MG/0.4ML SYRINGE 40 MG SQ (08:30)
[2023-08-21] MEDS: FUROSEMIDE 40MG/4ML VIAL 40 MG IV ×2 (08:30→15:37)
[2023-08-21] MEDS: predniSONE 20MG TAB 40 MG PO (08:30)
[2023-08-21 08:54] LABS: Vancomycin,Trough 14.9 ug/mL (5.0-10.0)
[2023-08-21] MEDS: AZITHROMYCIN 500 MG in 0.9 % SODIUM CHLORIDE 250 ML 250 MG IV (09:13)
--- NOTE | 2023-08-21 09:53 | EXP.PULM.PN ---
Subjective *Date: 08/21/23 *Time: 12:43 Interval history: No acute respiratory vents overnight. Denies any new respiratory complaints. Pulmonology Exam Inpatient Vital signs and Labs for Last 24 Hours: Temp Pulse Resp BP Pulse Ox O2 Del Method O2 Flow Rate 98.2 F 68 18 124/62 97 Nasal Cannula 2 08/21/23 07:53 08/21/23 07:53 08/21/23 07:53 08/21/23 07:53 08/21/23 07:53 08/21/23 07:53 08/21/23 07:53 FiO2 5 08/19/23 14:00 Laboratory Results - last 24 hr 08/20/23 06:14: WBC 11.9 H, RBC 3.83 L, Hgb 12.1 L D, Hct 37.0 L, MCV 96.7 H, MCH 31.1, MCHC 32.2, RDW 14.7, Plt Count 260, MPV 8.2, Neut % (Auto) 85.5 H, Lymph % (Auto) 7.8 L, [place] % (Auto) 6.6, Eos % (Auto) 0.0 L, Baso % (Auto) 0.1, Neut # (Auto) 10.2 H, Lymph # (Auto) 0.9, [place] # (Auto) 0.8, Eos # (Auto) 0.0, Baso # (Auto) 0.0 08/20/23 15:35: C-Reactive Protein 33.3 H 08/21/23 01:45: Chlamy pneumoniae PCR TNP, Adenovirus (PCR) Not detected, B. pertussis DNA (PCR) TNP, Coronavirus OC43 (PCR) Not detected, Coronavirus HKU1 (PCR) Not detected, Coronavirus 229E (PCR) Not detected, SARS-CoV-2 (PCR) Not detected, Coronavirus NL63 (PCR) Not detected, Human Metapneumovir PCR Not detected, Influenza A (H1) PCR Not detected, Influ A (H1N1/09) PCR Not detected, Influenza A (H3) PCR Not detected, Influenza Type A (PCR) Not detected, Influenza Type B (PCR) Not detected, M. pneumoniae (PCR) TNP, Parainfluenza 1 (PCR) Not detected, Parainfluenza 2 (PCR) Not detected, Parainfluenza 3 (PCR) Not detected, Parainfluenza 4 (PCR) Not detected, RSV (PCR) Not detected, Entero/Rhino (PCR) Not detected 08/21/23 05:18: WBC 11.4 H, RBC 3.92 L, Hgb 12.2 L, Hct 37.5 L, MCV 95.9 H, MCH 31.2, MCHC 32.5, RDW 14.5, Plt Count 313, MPV 8.3, Neut % (Auto) 77.0, Lymph % (Auto) 16.2, [place] % (Auto) 6.6, Eos % (Auto) 0.2, Baso % (Auto) 0.1, Neut # (Auto) 8.7 H, Lymph # (Auto) 1.8, [place] # (Auto) 0.8, Eos # (Auto) 0.0, Baso # (Auto) 0.0, Total Counted 100, Neutrophils % (Manual) 86 H, Lymphocytes % (Manual) 10, Monocytes % (Manual) 4, Platelet Estimate Normal, RBC Morphology Normal, Sodium 136, Potassium 3.2 L, Chloride 105, Carbon Dioxide 25, Anion Gap 9.2, BUN 28 H, Creatinine 1.10, Estimated Creat Clear 81, Estimated GFR 66, Est GFR ( Amer) 80, Glucose 104 H D, Calcium 8.2 L 08/21/23 08:05: Vancomycin Trough 14.9 H I & O for Labs for Last 24 Hours: Intake & Output 08/18/23 08/19/23 08/20/23 08/21/23 23:59 23:59 23:59 23:59 Intake Total 540 / 840 1080 / 1320 240 / 240 Output Total 0 / 0 0 / 0 0 / 0 Balance 540 / 840 1080 / 1320 240 / 240 Weight 196 lb 4 oz 202 lb 9 oz 198 lb 3.129 oz Constitutional: Present moderate distress Head: Present normocephalic and atraumatic ENT: Present normal exam, normal oropharynx and mucous membranes moist Neck: Present normal inspection and full ROM Respiratory: Present rales, respiratory distress and able to speak in complete sentences; Absent wheezes Cardiac: Present S1/S2, Tachycardia and radial pulses present GI: Present soft and distention; Absent tenderness or guarding Skin: Present intact; Absent cyanosis or jaundice Neuro: Present alert, awake and oriented x 3 Extremities: Present normal inspection; Absent clubbing or cyanosis Psychiatric: Present normal affect and cooperative Assessment and Plan *Assessment and plan (1) Pulmonary fibrosis: Status: Acute Category: Medical Code(s): J84.10 - Pulmonary fibrosis, unspecified (2) Mediastinal lymphadenopathy: Status: Acute Category: Medical Code(s): R59.0 - Localized enlarged lymph nodes (3) Pneumonia: Status: Acute Qualifiers: Aspiration pneumonia type: unspecified Laterality: left Lung location: upper lobe of lung Category: Medical Code(s): J18.9 - Pneumonia, unspecified organism Plan Mr. Dunlap is a 68-year-old male with reported history of COPD, CHF, hydrocephalus, hypertension, peripheral vascular disease presented to the hospital worsening respiratory distress and pulmonary was called for further evaluation and management. Patient also reported worsening lower extremity swelling. He does report a history of prior COVID-19 1 year leading to pulmonary fibrosis. CT ANo evidence of pulmonary embolism. Bilateral predominantly subpleural honeycombing and fibrotic changes not entirely typical with COVID-related pulmonary fibrosis though rarely seen. Also noted to have subpleural bullous lesions Concerning for other underlying interstitial lung disease or CPFE. CT also showed large right upper lobe calcified lung nodule along with right pleural effusion. Faint GGO predominantly on SUMEET. As per the patient he has been seeing corporate communications associate at [facility] for the last 2 years did not remember any autoimmune workup performed however remembers getting annual CT scans and reported to be having stable pulmonary fibrosis. Appears that his fibrosis has been attributed to his history of COVID-19 pneumonia at this point of time. ILD review of systems negative. Denies any family Struve autoimmune disorders. Admits recurrent infectious mononucleosis infections, if this is the case chronic active Omega-Alfonso's virus infection is also associated with interstitial pneumonia/pulmonary fibrosis. Patient is currently having acute hypoxic respiratory failure needing new oxygen requirements, he is on [address] showed left upper lobe groundglass opacity along with right pleural effusion will continue to receive diuretics. Will continue to treat for community-acquired pneumonia at this point of time. Will follow with comprehensive respiratory viral panel. For the noted pulmonary fibrosis we will follow the patient as an outpatient basis to further determine the etiology and possible right heart cath to rule out the possibility of pulmonary arterial hypertension. Interval update: Continue to be needing oxygen supplementation. No acute respiratory vents overnight. Comprehensive respiratory viral PCR negative. CRP elevated at 33.3 Echocardiogram RV mildly dilated and hypokinetic, RVSP at 30-35.EF at 55% Continue to receive ceftriaxone azithromycin along with Prednisone 40 mg daily Plan: -Follow with YANNI -Continue ceftriaxone azithromycin pending sputum culture results -Continue DuoNebs every 6 hours scheduled -Continue prednisone 40 mg daily -Obtain records from patient's prior corporate communications associate at [facility] # Thank you for involving pulmonary in this patient care. Will continue to follow.
--- NOTE | 2023-08-21 10:02 | P.PN_ITS ---
Subjective Subjective Date: 08/21/23 Time: 10:02 Principal diagnosis: SOA Interval history: 68-year-old white male in bed in no acute distress. Breathing has improved overnight. Discussed results of echocardiogram showing inferior hypokinesis with recommendation for left heart catheterization in addition to his right heart catheterization today. Patient agrees to proceed. Exam Data for Last 24 hours Vital signs and Labs for Last 24 Hours: Temp Pulse Resp BP Pulse Ox O2 Del Method O2 Flow Rate 98.2 F 68 18 124/62 97 Nasal Cannula 2 08/21/23 07:53 08/21/23 07:53 08/21/23 07:53 08/21/23 07:53 08/21/23 07:53 08/21/23 07:53 08/21/23 07:53 FiO2 5 08/19/23 14:00 Laboratory Results - last 24 hr 08/20/23 06:14: WBC 11.9 H, RBC 3.83 L, Hgb 12.1 L D, Hct 37.0 L, MCV 96.7 H, MCH 31.1, MCHC 32.2, RDW 14.7, Plt Count 260, MPV 8.2, Neut % (Auto) 85.5 H, Lymph % (Auto) 7.8 L, [place] % (Auto) 6.6, Eos % (Auto) 0.0 L, Baso % (Auto) 0.1, Neut # (Auto) 10.2 H, Lymph # (Auto) 0.9, [place] # (Auto) 0.8, Eos # (Auto) 0.0, Baso # (Auto) 0.0 08/20/23 15:35: C-Reactive Protein 33.3 H 08/21/23 01:45: Chlamy pneumoniae PCR TNP, Adenovirus (PCR) Not detected, B. pertussis DNA (PCR) TNP, Coronavirus OC43 (PCR) Not detected, Coronavirus HKU1 (PCR) Not detected, Coronavirus 229E (PCR) Not detected, SARS-CoV-2 (PCR) Not detected, Coronavirus NL63 (PCR) Not detected, Human Metapneumovir PCR Not detected, Influenza A (H1) PCR Not detected, Influ A (H1N1/09) PCR Not detected, Influenza A (H3) PCR Not detected, Influenza Type A (PCR) Not detected, Influenza Type B (PCR) Not detected, M. pneumoniae (PCR) TNP, Parainfluenza 1 (PCR) Not detected, Parainfluenza 2 (PCR) Not detected, Parainfluenza 3 (PCR) Not detected, Parainfluenza 4 (PCR) Not detected, RSV (PCR) Not detected, Entero/Rhino (PCR) Not detected 08/21/23 05:18: WBC 11.4 H, RBC 3.92 L, Hgb 12.2 L, Hct 37.5 L, MCV 95.9 H, MCH 31.2, MCHC 32.5, RDW 14.5, Plt Count 313, MPV 8.3, Neut % (Auto) 77.0, Lymph % (Auto) 16.2, [place] % (Auto) 6.6, Eos % (Auto) 0.2, Baso % (Auto) 0.1, Neut # (Auto) 8.7 H, Lymph # (Auto) 1.8, [place] # (Auto) 0.8, Eos # (Auto) 0.0, Baso # (Auto) 0.0, Total Counted 100, Neutrophils % (Manual) 86 H, Lymphocytes % (Manual) 10, Monocytes % (Manual) 4, Platelet Estimate Normal, RBC Morphology Normal, Sodium 136, Potassium 3.2 L, Chloride 105, Carbon Dioxide 25, Anion Gap 9.2, BUN 28 H, Creatinine 1.10, Estimated Creat Clear 81, Estimated GFR 66, Est GFR ( Amer) 80, Glucose 104 H D, Calcium 8.2 L 08/21/23 08:05: Vancomycin Trough 14.9 H I & O for Last 24 hours: Intake & Output 08/18/23 08/19/23 08/20/23 08/21/23 11:59 11:59 11:59 11:59 Intake Total 840 / 840 1020 / 1020 Output Total 0 / 0 0 / 0 0 / 0 Balance 0 / 0 840 / 840 1020 / 1020 Weight 196 lb 4 oz 202 lb 9 oz 198 lb 3.129 oz Constitutional Constitutional: no acute distress *Routine Respiratory Exam Respiratory: Present rhonchi *Routine Cardiovascular Exam Cardiovascular: Present RRR *Routine Extremities Exam Extremities: Absent edema Progress Note: A&P Assessment and plan (1) Pulmonary fibrosis: Status: Acute (2) Mediastinal lymphadenopathy: Status: Acute (3) Pneumonia: Status: Acute Assessment and Plan Assessment and Plan for All Diagnoses:: 1. Acute hypoxic respiratory failure with pneumonia and congestive heart failure -Continue supplemental oxygen as needed (baseline is 2 LPM) -Continue IV antibiotics per hospitalist -Continue IV Lasix -Echocardiogram shows normal LVEF but with mild inferior hypokinesis. Mildly increased RV size with mildly decreased RV function with RVSP of 30-35 mmHg. -Pulmonary following 2. History of hypertension -echo shows EF 55% with inferior hypokinesis 3. COPD with history of tobacco use -History of pulmonary fibrosis related to COVID infection remotely -Per patient he saw a mill hand plate mill last year in [place] that told him his fibrosis and COPD was stable -pulmonary following 4. Normal pressure hydrocephalus per patient -No treatment at this time Right and left heart cath today due to inferior hypokinesis and to evaluate right heart pressure to assess for Pulmonary HTN and to guide lasix therapy.
[2023-08-21] MEDS: VANCOMYCIN/WATER FOR INJ (PEG) 1.5 GM/300 ML PIGGYBACK IV (11:35)
[2023-08-21] MEDS: 0.9 % SODIUM CHLORIDE 500 ML 25 ML IV (13:38)
[2023-08-21] MEDS: VERAPAMIL 2.5MG/ML 2ML VIAL 2.5 MG IV (13:38)
[2023-08-21] MEDS: diphenhydrAMINE 50MG/ML VIAL 50 MG IV (13:38)
[2023-08-21] MEDS: LIDOCAINE 1% 10ML MDV 20 ML IJ (13:38)
[2023-08-21] MEDS: HEPARIN 1,000 UNITS/500ML NS (CATH LAB) 3000 UNIT IV (13:38)
[2023-08-21] MEDS: HEPARIN 1,000 UNITS/ML 10ML VIAL (CATH LAB) 10000 UNIT IV (13:38)
[2023-08-21] MEDS: NITROGLYCERIN 800MCG/8ML SYR (CATH LAB) 800 MCG IA (13:38)
[2023-08-21] MEDS: FENTANYL 100MCG/2ML VIAL 50 MCG IV (13:54)
[2023-08-21] MEDS: MIDAZOLAM HCL 1MG/1ML 5ML VIAL 1 MG IV (13:54)
[2023-08-21 14:06] LABS: Vancomycin,Peak 39.2 ug/ml (11-39)
[2023-08-21] MEDS: IOPAMIDOL-370 (76%);100ML BOTTLE 95 ML IV (14:18)
[2023-08-21 14:58] LABS: CATHL Arterial O2 SAT 75.2 % (90-100); CATHL Venous O2 SAT 75.2 % (75-80)
--- NOTE | 2023-08-21 16:01 | EXP.PHA.CONS ---
Pharmacy Consult Date: 08/21/23 Time: 16:01 Referring provider: DR. HALL Reason for Consult:: VANCOMYCIN LEVELS Allergies Allergy/AdvReac Type Severity Reaction Status Date / Time No Known Allergies Allergy Verified 08/22/20 20:12 Home Medications Medication Instructions Recorded Confirmed Type amlodipine 10 mg tablet 10 mg PO DAILY 02/15/22 08/19/23 History carvedilol 25 mg tablet 12.5 mg PO BID 02/15/22 08/19/23 History clopidogrel 75 mg tablet 75 mg PO DAILY 02/15/22 08/19/23 History finasteride 5 mg tablet 5 mg PO DAILY 02/15/22 08/19/23 History hydralazine 50 mg tablet 50 mg PO TID 02/15/22 08/19/23 History lisinopril 40 mg tablet 40 mg PO DAILY 02/15/22 08/19/23 History omeprazole 20 mg capsule,delayed 20 mg PO DAILY 02/15/22 08/19/23 History release rosuvastatin 20 mg tablet 20 mg PO DAILY 02/15/22 08/19/23 History alprazolam 0.5 mg tablet 0.5 mg PO HS 08/19/23 08/19/23 History New Prescriptions to Start Prescriptions: Height: 1.73 m Weight: 89.9 kg Laboratory Results:: Laboratory Results - last 24 hr 08/20/23 15:35: C-Reactive Protein 33.3 H 08/21/23 01:45: Chlamy pneumoniae PCR TNP, Adenovirus (PCR) Not detected, B. pertussis DNA (PCR) TNP, Coronavirus OC43 (PCR) Not detected, Coronavirus HKU1 (PCR) Not detected, Coronavirus 229E (PCR) Not detected, SARS-CoV-2 (PCR) Not detected, Coronavirus NL63 (PCR) Not detected, Human Metapneumovir PCR Not detected, Influenza A (H1) PCR Not detected, Influ A (H1N1/09) PCR Not detected, Influenza A (H3) PCR Not detected, Influenza Type A (PCR) Not detected, Influenza Type B (PCR) Not detected, M. pneumoniae (PCR) TNP, Parainfluenza 1 (PCR) Not detected, Parainfluenza 2 (PCR) Not detected, Parainfluenza 3 (PCR) Not detected, Parainfluenza 4 (PCR) Not detected, RSV (PCR) Not detected, Entero/Rhino (PCR) Not detected 08/21/23 05:18: WBC 11.4 H, RBC 3.92 L, Hgb 12.2 L, Hct 37.5 L, MCV 95.9 H, MCH 31.2, MCHC 32.5, RDW 14.5, Plt Count 313, MPV 8.3, Neut % (Auto) 77.0, Lymph % (Auto) 16.2, [place] % (Auto) 6.6, Eos % (Auto) 0.2, Baso % (Auto) 0.1, Neut # (Auto) 8.7 H, Lymph # (Auto) 1.8, [place] # (Auto) 0.8, Eos # (Auto) 0.0, Baso # (Auto) 0.0, Total Counted 100, Neutrophils % (Manual) 86 H, Lymphocytes % (Manual) 10, Monocytes % (Manual) 4, Platelet Estimate Normal, RBC Morphology Normal, Sodium 136, Potassium 3.2 L, Chloride 105, Carbon Dioxide 25, Anion Gap 9.2, BUN 28 H, Creatinine 1.10, Estimated Creat Clear 81, Estimated GFR 66, Est GFR ( Amer) 80, Glucose 104 H D, Calcium 8.2 L 08/21/23 08:05: Vancomycin Trough 14.9 H 08/21/23 13:06: Vancomycin Peak 39.2 H 08/21/23 13:56: ABG O2 Sat (Measured) 75.2 L, POC VBG O2 Sat (Jaylene) 75.2 Medical History: Medical History (Updated 08/20/23 @ 16:47 by Melisa Fraire MD) CHF (congestive heart failure) COPD (chronic obstructive pulmonary disease) Hydrocephalus Mediastinal lymphadenopathy Pneumonia Pulmonary fibrosis Assessment and Plan Assessment and plan all Dx Assessment and Plan for all problems:: PATIENT'S VANCOMYCIN PEAK AND TROUGH LEVELS WERE 39.2 MCG/ML AND 14.9 MCG/ML, RESPECTIVELY. RECOMMEND CONTINUING WITH VANCOMYCIN 1500 MG Q18H AT THIS TIME.
--- NOTE | 2023-08-21 17:33 | P.PN_ITS ---
Subjective *Date: 08/21/23 *Time: 17:33 Interval history: patient was seen and evaluated at the bedside. has SOB on exertion and walking but it is improving per patient, No reported acute events overnight, denies chest pain, shortness of breath at rest, nausea, vomiting, abdominal pain. Exam Data for Last 24 hours Vital signs and Labs for Last 24 Hours: Temp Pulse Resp BP Pulse Ox O2 Del Method O2 Flow Rate 98.1 F 69 17 95/62 L 97 Nasal Cannula 3 08/21/23 11:14 08/21/23 17:15 08/21/23 17:15 08/21/23 17:15 08/21/23 17:15 08/21/23 17:15 08/21/23 17:15 FiO2 5 08/19/23 14:00 Laboratory Results - last 24 hr 08/21/23 01:45: Chlamy pneumoniae PCR TNP, Adenovirus (PCR) Not detected, B. pertussis DNA (PCR) TNP, Coronavirus OC43 (PCR) Not detected, Coronavirus HKU1 (PCR) Not detected, Coronavirus 229E (PCR) Not detected, SARS-CoV-2 (PCR) Not detected, Coronavirus NL63 (PCR) Not detected, Human Metapneumovir PCR Not detected, Influenza A (H1) PCR Not detected, Influ A (H1N1/09) PCR Not detected, Influenza A (H3) PCR Not detected, Influenza Type A (PCR) Not detected, Influenza Type B (PCR) Not detected, M. pneumoniae (PCR) TNP, Parainfluenza 1 (PCR) Not detected, Parainfluenza 2 (PCR) Not detected, Parainfluenza 3 (PCR) Not detected, Parainfluenza 4 (PCR) Not detected, RSV (PCR) Not detected, Entero/Rhino (PCR) Not detected 08/21/23 05:18: WBC 11.4 H, RBC 3.92 L, Hgb 12.2 L, Hct 37.5 L, MCV 95.9 H, MCH 31.2, MCHC 32.5, RDW 14.5, Plt Count 313, MPV 8.3, Neut % (Auto) 77.0, Lymph % (Auto) 16.2, [place] % (Auto) 6.6, Eos % (Auto) 0.2, Baso % (Auto) 0.1, Neut # (Auto) 8.7 H, Lymph # (Auto) 1.8, [place] # (Auto) 0.8, Eos # (Auto) 0.0, Baso # (Auto) 0.0, Total Counted 100, Neutrophils % (Manual) 86 H, Lymphocytes % (Manual) 10, Monocytes % (Manual) 4, Platelet Estimate Normal, RBC Morphology Normal, Sodium 136, Potassium 3.2 L, Chloride 105, Carbon Dioxide 25, Anion Gap 9.2, BUN 28 H, Creatinine 1.10, Estimated Creat Clear 81, Estimated GFR 66, Est GFR ( Amer) 80, Glucose 104 H D, Calcium 8.2 L 08/21/23 08:05: Vancomycin Trough 14.9 H 08/21/23 13:06: Vancomycin Peak 39.2 H 08/21/23 13:56: ABG O2 Sat (Measured) 75.2 L, POC VBG O2 Sat (Jaylene) 75.2 I & O for Last 24 hours: Intake & Output 08/18/23 08/19/23 08/20/23 08/21/23 23:59 23:59 23:59 23:59 Intake Total 540 / 840 1080 / 1320 840 / 840 Output Total 0 / 0 0 / 0 525 / 525 Balance 540 / 840 1080 / 1320 315 / 315 Weight 89.018 kg 91.881 kg 89.9 kg Constitutional Constitutional: no acute distress *Routine HEENT Exam Head: Present normocephalic Eye: Present EOMI and PERRL ENT: Present mucous membranes moist *Routine Neck Exam Neck: Present supple; Absent lymphadenopathy *Routine Respiratory Exam Respiratory: Present crackles *Routine Cardiovascular Exam Cardiovascular: Present RRR *Routine Abdominal Exam Abdominal: Present soft and normoactive bowel sounds; Absent tenderness *Routine Extremities Exam Extremities: Present edema; Absent cyanosis or clubbing Comments: has b/l LE edema *Routine Skin Exam Skin: Present warm; Absent rash *Routine Neurological Exam Neurological: Present alert and oriented X3 Assessment and Plan *Assessment and plan (1) Acute hypoxemic respiratory failure: Status: Acute Category: Medical Code(s): J96.01 - Acute respiratory failure with hypoxia (2) Acute exacerbation of CHF (congestive heart failure): Status: Acute Qualifiers: Heart failure type: unspecified Qualified Code(s): I50.9 - Heart failure, unspecified Category: Medical Code(s): I50.9 - Heart failure, unspecified (3) Pulmonary edema: Status: Acute Qualifiers: Chronicity: acute Qualified Code(s): J81.0 - Acute pulmonary edema Category: Medical Code(s): J81.1 - Chronic pulmonary edema (4) CHF (congestive heart failure): Status: Acute Qualifiers: Heart failure type: unspecified Heart failure chronicity: chronic Qualified Code(s): I50.9 - Heart failure, unspecified Category: Medical Code(s): I50.9 - Heart failure, unspecified (5) COPD (chronic obstructive pulmonary disease): Status: Acute Qualifiers: COPD type: unspecified COPD Qualified Code(s): J44.9 - Chronic obstructive pulmonary disease, unspecified Category: Medical Code(s): J44.9 - Chronic obstructive pulmonary disease, unspecified (6) HTN (hypertension): Status: Acute Qualifiers: Hypertension type: unspecified Qualified Code(s): I10 - Essential (primary) hypertension Category: Medical Code(s): I10 - Essential (primary) hypertension Plan 68-year-old male with PMHx of COPD, CHF, Hydrocephalus, HTN, PAD s/p iliac stent presented to the ER with concerns of shortness of breath. Started about one week ago and had acute worsening of shortness of breath in the last 24hrs. on arrival patient presented with mild tachycardia and on respiratory distress, low satting. Checks x-ray was obtained. Imaging reviewed. There is a concern for pulmonary edema, underlying patient cannot be excluded. Labs are remarkable for mild leukocytosis, elevated BNP. Patient underwent nebulizer treatment, IV Lasix, and board antibiotic was given. Findings discussed with the ER for admission. Plan as follows: -Acute hypoxic respiratory failure, secondary to pulmonary edema, due to exacerbation of congestive heart failure: Respiratory therapy to assist DuoNeb every 6h Lasix 40 mg IV given in ER. Repeat another 40 mg. Monitor diuresis. Monitor renal output Echocardiogram ordered. Monitor a.m. labs Patient has vancomycin Zosyn and doxycycline at ER. We deferred the use of antibiotic, awaiting for clinical support of infection Respiratory panel negative -History of COPD, former smoker: Does not seems to be on exacerbation. Continue monitor Maximize O2 sats -Hypertension: Resume and reconcile home medication. On amlodipine carvedilol and hydralazine at home -History of hydrocephalus Conditions reviewed On home alprazolam for anxiety Patient on Plavix for PAD status post iliac stent. Continue Protonix for GI prophylaxis and GERD Full code continue IV lasix, plan for cardiac cath per cardio, likely dc tomorrow
--- NOTE | 2023-08-21 18:14 | PC.NURSE ---
AOX4, 3LNC FOR O2 SUPPORT. RADIAL BAND REMOVED 0 NO BLEEDING/HEMATOMA NOTED. PT DENIES CHEST PAIN. TOLERATING PO INTAKE WELL.
[2023-08-21] MEDS: ALPRAZolam 0.5MG TABLET 0.5 MG PO (21:14)
[2023-08-21] MEDS: PANTOPRAZOLE 40MG TABLET 40 MG PO (21:14)
[2023-08-21] MEDS: ATORVASTATIN 40MG TABLET 40 MG PO (21:14)
--- NOTE | 2023-08-21 22:20 | PC.NURSE ---
@ [phone] contacted RT: Pt refusal of all respiratory medications and stated not to bother him
[2023-08-22] VITALS: PULSE 70
[2023-08-22] MEDS: VANCOMYCIN/WATER FOR INJ (PEG) 1.5 GM/300 ML PIGGYBACK IV (03:18)
[2023-08-22 04:00] VITALS: BP 125/72; PULSE 50; PULSE 62; RESP 18; TEMP 36.7; O2SAT 97; BMI 29.7
[2023-08-22 06:25] VITALS: PULSE 61; PULSE 65; O2SAT 98
[2023-08-22] MEDS: IPRATROPIUM/ALBUTEROL 3 ML NEB IH (06:25)
[2023-08-22 06:34] LABS: MANUAL DIFFERENTIAL MANUAL DIFFERENTIAL (MANUAL DIFF)
[2023-08-22 06:42] LABS: Basophils % 0.2 % (0.1-2.0); Eosinophils # 0.1 K/mm3 (0.0-0.4); Eosinophils % 0.9 % (0.1-12.0); Hematocrit 40.1 % (42.0-52.0); Hemoglobin 12.8 g/dL (14.1-18.0); Lymphocytes # 2.1 K/mm3 (0.7-4.5); Lymphocytes % 20.5 % (10-50); Mean Corpuscular Hemoglobin 31.2 pg (27.0-31.2); Mean Corpuscular Volume 97.6 fl (80-94); Mean Platelet Volume 7.8 fl (7.4-10.4); Monocytes # 0.8 K/mm3 (0.1-1.0); Monocytes % 8.2 % (1.7-9.3); Neutrophils # 7.1 K/mm3 (1.8-7.8); Neutrophils % 70.1 % (37.0-80.0); Platelet Count 290 K/mm3 (142-424); Red Blood Count 4.11 M/mm3 (4.60-6.20); Red Cell Distribution Width 14.5 % (11.5-17.5); White Blood Count 10.2 K/mm3 (4.8-10.8)
[2023-08-22 06:48] LABS: Anion Gap 9.7 mEq/L (5-15); Blood Urea Nitrogen 27 mg/dl (9-20); Calcium 8.1 mg/dl (8.4-10.2); Carbon Dioxide 28 mmol/L (22.0-30.0); Chloride 102 mmol/L (98-107); Creatinine Clearance Estimated 80 mL/min (50-200); Estimated Glomerular Filt Rate 66 ml/min (>60); GFR (African American) 80 ML/MIN (>60); Glucose 99 mg/dl (74-100); Potassium 3.7 mmoL/L (3.5-5.1); Sodium 136 mmol/L (136-145)
[2023-08-22 08:00] VITALS: BP 131/85; PULSE 70; PULSE 74; RESP 20; TEMP 36.8; O2SAT 93; O2SAT 96
[2023-08-22] MEDS: CLOPIDOGREL 75MG TAB 75 MG PO (09:03)
[2023-08-22] MEDS: AMLODIPINE 10MG TABLET 10 MG PO (09:03)
[2023-08-22] MEDS: AZITHROMYCIN 250MG TABLET 500 MG PO (09:03)
[2023-08-22] MEDS: CARVEDILOL 12.5MG TABLET 12.5 MG PO (09:03)
[2023-08-22] MEDS: FINASTERIDE 5MG TABLET 5 MG PO (09:03)
[2023-08-22] MEDS: predniSONE 20MG TAB 40 MG PO (09:03)
[2023-08-22] MEDS: IRBESARTAN 75MG TABLET 75 MG PO (09:03)
--- NOTE | 2023-08-22 09:14 | PC.NURSE ---
PT. states he doesn't want his iv, lovenox, or breathing treatment's. Says he is leaving today. Dr. Segura called to change pt's diet to cardiac.
--- NOTE | 2023-08-22 09:56 | EXP.PULM.PN ---
Subjective *Date: 08/22/23 *Time: 11:34 Pulmonology Exam Inpatient Vital signs and Labs for Last 24 Hours: Temp Pulse Resp BP Pulse Ox O2 Del Method O2 Flow Rate 98.2 F 74 20 131/85 96 Room Air 2 08/22/23 08:00 08/22/23 08:00 08/22/23 08:00 08/22/23 08:00 08/22/23 08:00 08/22/23 08:34 08/22/23 06:25 FiO2 5 08/19/23 14:00 Laboratory Results - last 24 hr 08/21/23 13:06: Vancomycin Peak 39.2 H 08/21/23 13:56: ABG O2 Sat (Measured) 75.2 L, POC VBG O2 Sat (Jaylene) 75.2 08/22/23 05:59: WBC 10.2, RBC 4.11 L, Hgb 12.8 L, Hct 40.1 L, MCV 97.6 H, MCH 31.2, MCHC 32.0, RDW 14.5, Plt Count 290, MPV 7.8, Neut % (Auto) 70.1, Lymph % (Auto) 20.5, [place] % (Auto) 8.2, Eos % (Auto) 0.9, Baso % (Auto) 0.2, Neut # (Auto) 7.1, Lymph # (Auto) 2.1, [place] # (Auto) 0.8, Eos # (Auto) 0.1, Baso # (Auto) 0.0, Sodium 136, Potassium 3.7, Chloride 102, Carbon Dioxide 28, Anion Gap 9.7, BUN 27 H, Creatinine 1.10, Estimated Creat Clear 80, Estimated GFR 66, Est GFR ( Amer) 80, Glucose 99, Calcium 8.1 L, C-Reactive Protein 11.0 H D I & O for Labs for Last 24 Hours: Intake & Output 08/19/23 08/20/23 08/21/23 08/22/23 23:59 23:59 23:59 23:59 Intake Total 540 / 840 1080 / 1320 1080 / 1440 360 / 360 Output Total 0 / 0 0 / 0 525 / 525 0 / 0 Balance 540 / 840 1080 / 1320 555 / 915 360 / 360 Weight 196 lb 4 oz 202 lb 9 oz 198 lb 3.129 oz 196 lb 6.91 oz Assessment and Plan *Assessment and plan (1) Pulmonary fibrosis: Status: Acute Category: Medical Code(s): J84.10 - Pulmonary fibrosis, unspecified (2) Mediastinal lymphadenopathy: Status: Acute Category: Medical Code(s): R59.0 - Localized enlarged lymph nodes (3) Pneumonia: Status: Acute Qualifiers: Aspiration pneumonia type: unspecified Laterality: left Lung location: upper lobe of lung Category: Medical Code(s): J18.9 - Pneumonia, unspecified organism (4) Pulmonary hypertension: Status: Acute Category: Medical Code(s): I27.20 - Pulmonary hypertension, unspecified Plan Mr. Dunlap is a 68-year-old male with reported history of COPD, CHF, hydrocephalus, hypertension, peripheral vascular disease presented to the hospital worsening respiratory distress and pulmonary was called for further evaluation and management. Patient also reported worsening lower extremity swelling. He does report a history of prior COVID-19 1 year leading to pulmonary fibrosis. CT ANo evidence of pulmonary embolism. Bilateral predominantly subpleural honeycombing and fibrotic changes not entirely typical with COVID-related pulmonary fibrosis though rarely seen. Also noted to have subpleural bullous lesions Concerning for other underlying interstitial lung disease or CPFE. CT also showed large right upper lobe calcified lung nodule along with right pleural effusion. Faint GGO predominantly on SUMEET. Comprehensive respiratory viral PCR negative. As per the patient he has been seeing primary substance abuse counselor at [facility] for the last 2 years did not remember any autoimmune workup performed however remembers getting annual CT scans and reported to be having stable pulmonary fibrosis. Appears that his fibrosis has been attributed to his history of COVID-19 pneumonia at this point of time. ILD review of systems negative. Denies any family Struve autoimmune disorders. Admits recurrent infectious mononucleosis infections, if this is the case chronic active Omega-Alfonso's virus infection is also associated with interstitial pneumonia/pulmonary fibrosis. Patient is currently having acute hypoxic respiratory failure needing new oxygen requirements, he is on [address] showed left upper lobe groundglass opacity along with right pleural effusion will continue to receive diuretics. Will continue to treat for community-acquired pneumonia at this point of time. Will follow with comprehensive respiratory viral panel. For the noted pulmonary fibrosis we will follow the patient as an outpatient basis to further determine the etiology and possible right heart cath to rule out the possibility of pulmonary arterial hypertension. Interval update: No acute respiratory vents overnight. Weaned to room air this morning. Echocardiogram RV mildly dilated and hypokinetic, RVSP at 30-35.EF at 55%. RHC mean PA pressure 28, resistance < 3 lawrence - Group III P-HTN likely from pulmonary fibrosis and hypoxic respiratory failure. No evidence of primary pulmonary arterial hypertension at this point of time. CRP 33.3 --> 11.0 Continue to receive ceftriaxone azithromycin along with Prednisone 40 mg daily Plan: -Follow with YANNI -Wean antibiotics to cefdinir to complete total of 5-day course -Continue prednisone 40 mg daily for 2 weeks upon discharge. -Continue DuoNebs every 6 hours scheduled -Obtain records from patient's prior primary substance abuse counselor at [facility] # Thank you for involving pulmonary in this patient care. Will follow the patient in pulmonary clinic in 2 weeks postdischarge.
[2023-08-22 09:59] LABS: Lymphocytes % 19 % (10-50); Monocytes % 11 % (2-9); Neutrophils % 69 % (42-76); Total Cells Counted 100
[2023-08-22 10:01] LABS: Platelet Estimate Normal; RBC Morphology Normal
--- NOTE | 2023-08-22 10:08 | EXP.CARD.PN ---
Subjective Subjective Date: 08/22/23 Time: 10:08 Principal diagnosis: SOA Interval history: 68 yo WM sitting at bedside in NAD. States he is ready to go home. Results of R/LHC reviewed with patient. Exam Data for Last 24 hours Vital signs and Labs for Last 24 Hours: Temp Pulse Resp BP Pulse Ox O2 Del Method O2 Flow Rate 98.2 F 74 20 131/85 96 Room Air 2 08/22/23 08:00 08/22/23 08:00 08/22/23 08:00 08/22/23 08:00 08/22/23 08:00 08/22/23 08:34 08/22/23 06:25 FiO2 5 08/19/23 14:00 Laboratory Results - last 24 hr 08/21/23 13:06: Vancomycin Peak 39.2 H 08/21/23 13:56: ABG O2 Sat (Measured) 75.2 L, POC VBG O2 Sat (Jaylene) 75.2 08/22/23 05:59: WBC 10.2, RBC 4.11 L, Hgb 12.8 L, Hct 40.1 L, MCV 97.6 H, MCH 31.2, MCHC 32.0, RDW 14.5, Plt Count 290, MPV 7.8, Neut % (Auto) 70.1, Lymph % (Auto) 20.5, [place] % (Auto) 8.2, Eos % (Auto) 0.9, Baso % (Auto) 0.2, Neut # (Auto) 7.1, Lymph # (Auto) 2.1, [place] # (Auto) 0.8, Eos # (Auto) 0.1, Baso # (Auto) 0.0, Total Counted 100, Neutrophils % (Manual) 69, Band Neutrophils % 1.0, Lymphocytes % (Manual) 19, Monocytes % (Manual) 11 H, Platelet Estimate Normal, RBC Morphology Normal, Sodium 136, Potassium 3.7, Chloride 102, Carbon Dioxide 28, Anion Gap 9.7, BUN 27 H, Creatinine 1.10, Estimated Creat Clear 80, Estimated GFR 66, Est GFR ( Amer) 80, Glucose 99, Calcium 8.1 L, C-Reactive Protein 11.0 H D I & O for Last 24 hours: Intake & Output 08/19/23 08/20/23 08/21/23 08/22/23 11:59 11:59 11:59 11:59 Intake Total 840 / 840 1020 / 1020 1200 / 1200 Output Total 0 / 0 0 / 0 0 / 0 525 / 525 Balance 0 / 0 840 / 840 1020 / 1020 675 / 675 Weight 196 lb 4 oz 202 lb 9 oz 198 lb 3.129 oz 196 lb 6.91 oz Constitutional Constitutional: no acute distress *Routine Respiratory Exam Respiratory: Present CTA bilaterally *Routine Cardiovascular Exam Cardiovascular: Present RRR *Routine Extremities Exam Extremities: Absent edema *Routine Neurological Exam Neurological: Present alert, oriented X3 and CN II-XII intact Progress Note: A&P Assessment and plan (1) Pulmonary fibrosis: Status: Acute (2) Mediastinal lymphadenopathy: Status: Acute (3) Pneumonia: Status: Acute (4) Pulmonary hypertension: Status: Acute (5) CAD (coronary artery disease): Status: Acute Assessment and Plan Assessment and Plan for All Diagnoses:: 1. Acute hypoxic respiratory failure with pneumonia and congestive heart failure -Echocardiogram shows normal LVEF but with mild inferior hypokinesis. Mildly increased RV size with mildly decreased RV function with RVSP of 30-35 mmHg. -Pulmonary following 2. History of hypertension -echo shows EF 55% with inferior hypokinesis -continue RAJAT, BB and amlodipine along with hydralazine 3. COPD with history of tobacco use -History of pulmonary fibrosis related to COVID infection remotely -Per patient he saw a farmer cash grain last year in [place] that told him his fibrosis and COPD was stable -pulmonary following 4. Normal pressure hydrocephalus per patient -No treatment at this time 5. Mild CAD with mild mid LAD mycardial bridge -medical therapy with ASA and statin 6. Pulmonary HTN, mild to moderate -defer to pulmonary 7. PAD -prior iliac stenting -on plavix STable for discharge from cardiology standpoint. Home med recommendations: Plavix 75 mg daily Coreg 12.5 mg twice daily Lisinopril 40 mg daily Amlodipine 10 mg daily Hydralazine 50 mg 3 times daily as needed systolic blood pressure greater than 170 mm Hg Omeprazole 20 mg daily Rosuvastatin 20 mg daily Follow up in office in 1-2 wks
[2023-08-22] MEDS: ASPIRIN 81MG CHEWABLE TABLET 81 MG PO (11:31)
--- NOTE | 2023-08-22 12:14 | PC.NURSE ---
Dr. Segura called about pt wanting to be seen so he can be discharged.
--- NOTE | 2023-08-22 12:16 | EXP.DC.SUM ---
General Admission date:: 08/19/23 Discharge date: 08/22/23 HPI HPI HPI: This is 68-year-old male with PMHx of COPD, CHF, Hydrocephalus, HTN, PAD s/p iliac stent presented to the ER with concerns of shortness of breath. Started about one week ago and had acute worsening of shortness of breath in the last 24hrs. As well as he noticed he had mild increase in peripheral swelling, patient does not take a diuretic. 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 He does not take any inhalers. Patient stated he does not have any chest pain, abdominal pain, no fevers or chills. stated because he was having increased work of breathing earlier today she gave him 500 mg of azithromycin that she had at home. Admitted for treatment and management. Hospital Course Hospital Course Hospital Course: Patient was seen and evaluated at the bedside on the day of discharge. Patient is stable for discharge. Patient wishes to be discharged. All patient questions were answered and patient was given time to ask questions. Patient was discharged in stable condition. Patient understands that she can return to ER in case of any sudden changes in health. Total time spent on DC - 38 mins 68-year-old male with PMHx of COPD, CHF, Hydrocephalus, HTN, PAD s/p iliac stent presented to the ER with concerns of shortness of breath. Started about one week ago and had acute worsening of shortness of breath in the last 24hrs. on arrival patient presented with mild tachycardia and on respiratory distress, low satting. Checks x-ray was obtained. Imaging reviewed. There is a concern for pulmonary edema, underlying patient cannot be excluded. Labs are remarkable for mild leukocytosis, elevated BNP. Patient underwent nebulizer treatment, IV Lasix, and board antibiotic was given. Findings discussed with the ER for admission. Plan as follows: -Acute hypoxic respiratory failure, secondary to pulmonary edema, due to exacerbation of congestive heart failure: ok to dc per pulmonary and cardiology, prescriptions sent as recommended -History of COPD, former smoker: Does not seems to be on exacerbation. Continue monitor Maximize O2 sats -Hypertension: Resume and reconcile home medication. On amlodipine carvedilol and hydralazine at home -History of hydrocephalus Conditions reviewed On home alprazolam for anxiety Patient on Plavix for PAD status post iliac stent. Continue Protonix for GI prophylaxis and GERD Full code Exam Data for Last 24 hours Vital signs and Labs for Last 24 Hours: Temp Pulse Resp BP Pulse Ox O2 Del Method O2 Flow Rate 98.2 F 74 20 131/85 96 Room Air 2 08/22/23 08:00 08/22/23 08:00 08/22/23 08:00 08/22/23 08:00 08/22/23 08:00 08/22/23 10:55 08/22/23 06:25 FiO2 5 08/19/23 14:00 Laboratory Results - last 24 hr 08/21/23 13:06: Vancomycin Peak 39.2 H 08/21/23 13:56: ABG O2 Sat (Measured) 75.2 L, POC VBG O2 Sat (Jaylene) 75.2 08/22/23 05:59: WBC 10.2, RBC 4.11 L, Hgb 12.8 L, Hct 40.1 L, MCV 97.6 H, MCH 31.2, MCHC 32.0, RDW 14.5, Plt Count 290, MPV 7.8, Neut % (Auto) 70.1, Lymph % (Auto) 20.5, [place] % (Auto) 8.2, Eos % (Auto) 0.9, Baso % (Auto) 0.2, Neut # (Auto) 7.1, Lymph # (Auto) 2.1, [place] # (Auto) 0.8, Eos # (Auto) 0.1, Baso # (Auto) 0.0, Total Counted 100, Neutrophils % (Manual) 69, Band Neutrophils % 1.0, Lymphocytes % (Manual) 19, Monocytes % (Manual) 11 H, Platelet Estimate Normal, RBC Morphology Normal, Sodium 136, Potassium 3.7, Chloride 102, Carbon Dioxide 28, Anion Gap 9.7, BUN 27 H, Creatinine 1.10, Estimated Creat Clear 80, Estimated GFR 66, Est GFR ( Amer) 80, Glucose 99, Calcium 8.1 L, C-Reactive Protein 11.0 H D I & O for Last 24 hours: Intake & Output 08/19/23 08/20/23 08/21/23 08/22/23 23:59 23:59 23:59 23:59 Intake Total 540 / 840 1080 / 1320 1080 / 1440 360 / 360 Output Total 0 / 0 0 / 0 525 / 525 0 / 0 Balance 540 / 840 1080 / 1320 555 / 915 360 / 360 Weight 89.018 kg 91.881 kg 89.9 kg 89.1 kg Constitutional Constitutional: no acute distress *Routine HEENT Exam Head: Present normocephalic Eye: Present EOMI and PERRL ENT: Present mucous membranes moist *Routine Neck Exam Neck: Present supple; Absent lymphadenopathy *Routine Respiratory Exam Respiratory: Present crackles *Routine Cardiovascular Exam Cardiovascular: Present RRR *Routine Abdominal Exam Abdominal: Present soft and normoactive bowel sounds; Absent tenderness *Routine Extremities Exam Extremities: Present edema; Absent cyanosis or clubbing Comments: has b/l LE edema *Routine Skin Exam Skin: Present warm; Absent rash *Routine Neurological Exam Neurological: Present alert and oriented X3 Results Data Completed and Pending Labs on day of discharge: Labs from last 24 hours 08/22/23 08/21/23 08/21/23 05:59 13:56 13:06 WBC 10.2 RBC 4.11 L Hgb 12.8 L Hct 40.1 L MCV 97.6 H MCH 31.2 MCHC 32.0 RDW 14.5 Plt Count 290 MPV 7.8 Neut % (Auto) 70.1 Lymph % (Auto) 20.5 [place] % (Auto) 8.2 Eos % (Auto) 0.9 Baso % (Auto) 0.2 Neut # (Auto) 7.1 Lymph # (Auto) 2.1 [place] # (Auto) 0.8 Eos # (Auto) 0.1 Baso # (Auto) 0.0 Total Counted 100 Neutrophils % (Manual) 69 Band Neutrophils % 1.0 Lymphocytes % (Manual) 19 Monocytes % (Manual) 11 H Platelet Estimate Normal RBC Morphology Normal ABG O2 Sat (Measured) 75.2 L POC VBG O2 Sat (Jaylene) 75.2 Sodium 136 Potassium 3.7 Chloride 102 Carbon Dioxide 28 Anion Gap 9.7 BUN 27 H Creatinine 1.10 Estimated Creat Clear 80 Estimated GFR 66 Est GFR ( Amer) 80 Glucose 99 Calcium 8.1 L C-Reactive Protein 11.0 H D Vancomycin Peak 39.2 H DS: Diagnosis Discharge Diagnosis (1) Pulmonary fibrosis: Status: Acute Code(s): J84.10 - Pulmonary fibrosis, unspecified (2) Mediastinal lymphadenopathy: Status: Acute Code(s): R59.0 - Localized enlarged lymph nodes (3) Pneumonia: Status: Acute Code(s): J18.9 - Pneumonia, unspecified organism Qualifiers: Aspiration pneumonia type: unspecified Laterality: left Lung location: upper lobe of lung (4) Pulmonary hypertension: Status: Acute Code(s): I27.20 - Pulmonary hypertension, unspecified Meds Home Medications and Allergies Home Medications Medication Instructions Recorded Confirmed Type amlodipine 10 mg tablet 10 mg PO DAILY 02/15/22 08/19/23 History carvedilol 25 mg tablet 12.5 mg PO BID 02/15/22 08/19/23 History clopidogrel 75 mg tablet 75 mg PO DAILY 02/15/22 08/19/23 History finasteride 5 mg tablet 5 mg PO DAILY 02/15/22 08/19/23 History hydralazine 50 mg tablet 50 mg PO TID 02/15/22 08/19/23 History lisinopril 40 mg tablet 40 mg PO DAILY 02/15/22 08/19/23 History omeprazole 20 mg capsule,delayed 20 mg PO DAILY 02/15/22 08/19/23 History release rosuvastatin 20 mg tablet 20 mg PO DAILY 02/15/22 08/19/23 History alprazolam 0.5 mg tablet 0.5 mg PO HS 08/19/23 08/19/23 History cefdinir 300 mg capsule 300 mg PO BID 5 days #10 caps 08/22/23 Rx prednisone 50 mg tablet 50 mg PO DAILY 5 days #5 tabs 08/22/23 Rx New Prescriptions to Start Prescriptions: cefdinir Adriana Segura prednisone Adriana Segura Allergies Allergy/AdvReac Type Severity Reaction Status Date / Time No Known Allergies Allergy Verified 08/22/20 20:12 Discharge Plan Disposition Patient Disposition: Home, Self-Care Condition: Fair Discharge Order Discharge Orders: Discharge Order (Routine); Ordered 08/22/23 Ordered By: Adriana Segura Follow up Plan Follow up with: Melisa Fraire MD [Physician] - 09/10/23 1:15 pm (2 weeks) Prescriptions/Medication Reconciliation: New prednisone 50 mg tablet 50 mg PO DAILY 5 Days Qty: 5 0RF cefdinir 300 mg capsule 300 mg PO BID 5 Days Qty: 10 0RF Continued carvedilol 25 MG tablet 12.5 mg PO BID clopidogrel 75 MG tablet 75 mg PO DAILY amlodipine 10 MG tablet 10 mg PO DAILY omeprazole 20 MG capsule,delayed release(DR/EC) 20 mg PO DAILY hydralazine 50 MG tablet 50 mg PO TID lisinopril 40 MG tablet 40 mg PO DAILY finasteride 5 MG tablet 5 mg PO DAILY rosuvastatin 20 MG tablet 20 mg PO DAILY alprazolam 0.5 mg tablet 0.5 mg PO HS Problem Reconciliation Problems Reviewed?: Yes Patient Discharge Instructions ACTIVITY: Ambulate as tolerated DIET: continue same diet Patient Instructions: DI for Heart Failure, DI for Chronic Obstructive Pulmonary Disease, DI for Cardiac Catheterization, DI for Shortness of Breath, DI for Surgical Site Infection, DI for Respiratory Failure Providers Primary Care Provider: Melva Marks Admit Provider: Junior Silveira Attending Provider: Junior Silveira
[2023-08-22 12:33] LABS: Antinuclear Antibodies (ANA) Negative
--- NOTE | 2023-08-23 14:28 | CARE MANAGER ---
Called and spoke with patient regarding recent discharge. Patient states that he has started all new medication and he is aware of scheduled f/u appts. No concerns voiced at time of call.
== END 2023-08-22 14:20 | disposition home or self-care (01) | DRG 286 ==
LOC: ER 02:49 → 2ND 03:01
PROVIDERS: Internal Medicine; Internal Medicine Pulmonary Disease; Nurse Practitioner Family; Admitting Provider Internal Medicine Adolescent Medicine; Emergency Provider Emergency Medicine; PCP Internal Medicine; Visit Provider Internal Medicine Adolescent Medicine
PROC: 4A023N8 Measurement of Cardiac Sampling and Pressure, Bilateral, Percutaneous Approach (ICD-10-PCS; principal; 2023-08-21 11:45)
DX: I11.0 Hypertensive heart disease with heart failure (principal); I50.33 Acute on chronic diastolic (congestive) heart failure; J69.0 Pneumonitis due to inhalation of food and vomit; J96.01 Acute respiratory failure with hypoxia; J44.0 Chronic obstructive pulmonary disease with (acute) lower respiratory infection; I73.9 Peripheral vascular disease, unspecified; J84.10 Pulmonary fibrosis, unspecified; F41.9 Anxiety disorder, unspecified; Z87.891 Personal history of nicotine dependence
CPT/HCPCS: 36415; 71045; 71275; 80048; 80053; 80202; 81001; 82803; 82810; 83880; 84484; 85007; 85014; 85018; 85025; 85048; 85049; 86038; 86140; 87632; 87635; 87636; 93005; 93306; 93460; 94640; 94761; 99152; 99153; 99291; C1725; C1760; C1769; C1894; J0456; J0696; J1644; J2543; Q9967

== ENCOUNTER 2023-08-28 12:03 | Outpatient (CLI) | payer BC, MEDICARE, SELFPAY | END 2023-08-28 23:59 | PROVIDERS: PCP Internal Medicine; Visit Provider Physician Assistant | DX: I48.91 Unspecified atrial fibrillation (principal); R94.31 Abnormal electrocardiogram [ECG] [EKG] | CPT/HCPCS: 93270 ==